=== PATIENT | female | born 1945 | race Caucasian/White ===

== ENCOUNTER 2023-02-27 00:08 | Emergency (ER) | payer OTHER, SELFPAY ==
--- NOTE | ~2023-02-27 | XR_ITS ---
EXAMINATION: XR ABDOMEN KUB CLINICAL INDICATION: Question constipation COMPARISON: 01/26/2017 TECHNIQUE: AP view of the abdomen. FINDINGS: The bowel gas pattern is normal with no evidence of ileus or obstruction. Stool present throughout the nondistended colon. No unusual soft tissue calcifications are noted. The bones are unremarkable. XR/XR KUB IMPRESSION: Mild constipation.
--- OUTSIDE RECORDS SUMMARY | 2023-02-27 00:26 | XMS_ITS | Continuity of Care Document ---
Author Name Unknown Organization [facility] Address [address] [place] [id number]- Care Team Providers Care Still Cleaner Name Role Phone Carlos Cancino MD Primary Care Physician [place] [facility] [place] 02[place] - 09/22/20 [facility] [address] [place] [id number] Attending Physician: Daron Rose MD Admitting Physician: Daron Rose MD Referring Physician: Carlos Cancino MD Allergies, Adverse Reactions, Alerts Substance Reaction Severity Status NKA Active Medications (Vitamin D3) Cholecalciferol 400 LONG TERM units/mL oral syringe 1 mL = 400 International_Units, By Mouth, Daily, 0 Refills, Maintenance, 03/14/18 19:12:10 EDT Start Date: 03/14/18 Status: Ordered Aspirin Tablet 81 mg, By Mouth, Daily, Refills 0, Maintenance, 03/14/18 19:10:49 EDT Start Date: 03/14/18 Status: Ordered atorvastatin 20 mg oral tablet 1 tablet = 20 mg, By Mouth, Daily, # 30 tablet, 0 Refills, Maintenance, Tablet Start Date: 03/14/18 Status: Ordered carvedilol 25 mg oral tablet 25 mg, 1, tablet, By Mouth, 2 times a day, # 180 tablet, Refills 0, Maintenance, 03/14/18 19:11:06 EDT Start Date: 03/14/18 Status: Ordered Hydrochlorothiazide By Mouth, Daily, 0 Refills, Maintenance, 03/14/18 19:11:57 EDT Start Date: 03/14/18 Status: Ordered Losartan By Mouth, Daily, 0 Refills, Maintenance, 03/14/18 19:14:00 EDT Start Date: 03/14/18 Status: Ordered Prilosec OTC = 20 mg, By Mouth, Daily, 0 Refills, Maintenance, 03/14/18 19:13:38 EDT Start Date: 03/14/18 Status: Ordered Spironolactone By Mouth, 0 Refills, Maintenance, 03/14/18 19:13:05 EDT Start Date: 03/14/18 Status: Ordered
--- OUTSIDE RECORDS SUMMARY | 2023-02-27 00:26 | XMS_ITS | Continuity of Care Document ---
Author Name Unknown Organization [facility] Address [address] [place] [id number]- Care Team Providers Care Customer Relations Assistant Name Role Phone Barak HIGGINS, Carlos Munson Primary Care Physician [place] [facility] [place]20 [facility] [address] [place] [id number] [facility] Attending Physician: Daron Rose MD Admitting Physician: Daron Rose MD Referring Physician: Slade CHEMICAL LABORATORY SCIENTIST, Ludy Allergies, Adverse Reactions, Alerts Substance Reaction Severity Status NKA Active Medications (Vitamin D3) Cholecalciferol 400 FCI units/mL oral syringe 1 mL = 400 [...]
--- OUTSIDE RECORDS SUMMARY | 2023-02-27 00:26 | XMS_ITS | Continuity of Care Document ---
Author Name Unknown Organization [facility] Address [address] [place] [address]- Care Team Providers Care Clinical Application Consultant Name Role Phone Barak HIGGINS, Carlos Munson Primary Care Physician [phone] Encounter [facility] [place] Date(s): 05/03/21 - 05/03/[address] [address]- Encounter Diagnosis Abdominal pain(Final) - 05/03/21 Discharge Disposition: A-D/C Home Attending Physician: Jalen Cheek MD Admitting Physician: Jalen Cheek MD Referring Physician: Not on Staff, Referring MD Allergies, Adverse Reactions, Alerts Substance Reaction Severity Status NKA Active Medications (Vitamin D3) Cholecalciferol 400 FDC units/mL oral syringe 1 mL = 400 [...] 19:13:05 EDT Start Date: 03/14/18 Status: Ordered Vital Signs Most recent to oldest [Reference Range]: 1 2 3 Oxygen Saturation [94-100 %] 99 % (05/03/21 3:01 PM) 98 % (05/03/21 9:53 AM) Pulse Rate [55-90 bpm] 70 bpm (05/03/21 3:27 PM) 62 bpm (05/03/21 3:01 PM) 64 bpm (05/03/21 9:53 AM) Blood Pressure [90-138/55-84 mm Hg] 162/68mm Hg *H* (05/03/21 3:27 PM) 121/67mm Hg (05/03/21 3:01 PM) 125/48mm Hg (05/03/21 9:53 AM) Respiratory Rate [16-30 br/min] 18 br/min (05/03/21 3:01 PM) 18 br/min (05/03/21 9:53 AM) Temperature [96.8-100.4 DegF] 99.2 DegF (05/03/21 3:01 PM) 99.8 DegF (05/03/21 9:53 AM) Mode of Delivery (Oxygen) Room air (05/03/21 3:01 PM) Room air (05/03/21 9:53 AM) Blood pressure sites Arm, left (05/03/21 3:01 PM) Arm, left (05/03/21 9:53 AM) Temperature Route Oral (05/03/21 3:01 PM) Oral (05/03/21 9:53 AM)
--- OUTSIDE RECORDS SUMMARY | 2023-02-27 00:27 | XMS_ITS | Continuity of Care Document ---
Author Name Unknown Organization [facility] Address [address] [place] [address]- Care Team Providers Care Improvement Engineer Name Role Phone Barak HIGGINS, Carlos Munson Primary Care Physician [place] [facility] [place] 09[place]22/20 [facility] [address] [place] [id number] Attending Physician: Patrick Buchanan Admitting Physician: Patrick Buchanan Referring Physician: Patrick Buchanan Referring Physician: Slade TERRY, Ludy Allergies, Adverse Reactions, Alerts Substance Reaction Severity Status NKA Active Medications (Vitamin D3) Cholecalciferol 400 HALFWAY units/mL oral syringe 1 mL = 400 [...]
--- OUTSIDE RECORDS SUMMARY | 2023-02-27 00:27 | XMS_ITS | Continuity of Care Document ---
Author Name Unknown Organization [facility] ter Address [address] [place] [id number]- Care Team Providers Care Critical Care Nurse Practitioner Name Role Phone Barak HIGGINS, Carlos Munson Primary Care Physician [place] [facility] [place] 11/[place]/[address] [address] [facility] Attending Physician: Lenin Cui MD Allergies, Adverse Reactions, Alerts Substance Reaction Severity Status NKA Active Medications (Vitamin D3) Cholecalciferol 400 CHCF units/mL oral syringe 1 mL = 400 [...]
[2023-02-27 00:33] VITALS: BMI 52.5
[2023-02-27 00:36] VITALS: BP 134/66; PULSE 63; RESP 20; TEMP 36.6; O2SAT 96
--- NOTE | 2023-02-27 02:00 | PC.NURSE ---
Pt. refusing labs at this time. Stating that she wants to go back to facility. Jus Godfrey MD aware and in to pt.'s bedside. Awaiting d/c
--- NOTE | 2023-02-27 03:15 | PC.NURSE ---
Trying to coordinate transportation for pt.'s discharge back to [facility]. Called [facility] and pt.'s emergency contact, niciarra Patterson. Left message with Yesenia and awaiting callback. Spoke to Venita at [facility]. Venita states that [facility] is locked until 6am and pt. cannot come back until after doors open at 6am. Venita states that at 8am, she will speak to her manager employee benefits Monserrat about potentially coordinating a ride for pt. if we don't hear back from her niece by then.
--- NOTE | 2023-02-27 06:33 | MHC.EDTECH ---
call out to wendy for transport at 0619 back to assisted living facility, spoke to noemy
== END 2023-02-27 07:00 | disposition home or self-care (01) ==
PROVIDERS: Emergency Provider Emergency Medicine
DX: R10.9 Unspecified abdominal pain (principal)
CPT/HCPCS: 74018; 99283; 99284

== ENCOUNTER 2023-09-24 21:18 | Inpatient (IN) | payer MEDICARE, MEDICAID, SELFPAY ==
--- NOTE | ~2023-09-24 | XR_ITS ---
EXAMINATION: Chest, right ankle and AP pelvis with right hip. CLINICAL INDICATIONS: Fall. TECHNIQUE: Chest one view. Right ankle 2 views. AP pelvis and right hip 3 views. FINDINGS: Chest: The lungs are well-expanded and clear. Heart size and pulmonary vascularity is normal. There is elevated right hemidiaphragm. Bone windows reveal no gross bony abnormality. The soft tissues are normal. Right ankle: The ankle mortise appears normal. There is talipes equinovalgus deformity of the foot with nonvisualization of subtalar joint. There is no visible acute fracture, dislocation or subluxation. There is diffuse osteopenia. The soft tissues are normal. There is moderate size calcaneal heel enthesophyte. There are healing fractures proximal third, fourth and fifth metatarsals. Soft tissues are normal. AP pelvis: There is moderate loss of right hip joint space with periarticular spurring and subchondral cystic changes consistent with advanced DJD. The left hip joint space is maintained normal. SI joints are normal. The soft tissues are normal. XR/XR chest 1V IMPRESSION: 1. Unremarkable chest exam. 2. Unremarkable right ankle exam. 3. Healing fractures proximal third, fourth and fifth metatarsals. No acute fractures seen. There is moderate size calcaneal heel enthesophyte. Talipes equinus valgus deformity right foot. No acute fracture or dislocation seen. 4. Advanced DJD right hip joint. No acute fracture or dislocation seen. There is diffuse osteopenia.
--- NOTE | ~2023-09-24 | XR_ITS ---
EXAMINATION: Chest, right ankle and AP pelvis with right hip. CLINICAL INDICATIONS: Fall. TECHNIQUE: Chest one view. Right ankle 2 views. AP pelvis and right hip 3 views. FINDINGS: Chest: The lungs are well-expanded and clear. Heart size and pulmonary vascularity is normal. There is elevated right hemidiaphragm. Bone windows reveal no gross bony abnormality. The soft tissues are normal. Right ankle: The ankle mortise appears normal. There is talipes equinovalgus deformity of the foot with nonvisualization of subtalar joint. There is no visible acute fracture, dislocation or subluxation. There is diffuse osteopenia. The soft tissues are normal. There is moderate size calcaneal heel enthesophyte. There are healing fractures proximal third, fourth and fifth metatarsals. Soft tissues are normal. AP pelvis: There is moderate loss of right hip joint space with periarticular spurring and subchondral cystic changes consistent with advanced DJD. The left hip joint space is maintained normal. SI joints are normal. The soft tissues are normal. XR/XR ankle RT min 3V IMPRESSION: 1. Unremarkable chest exam. 2. Unremarkable right ankle exam. 3. Healing fractures proximal third, fourth and fifth metatarsals. No acute fractures seen. There is moderate size calcaneal heel enthesophyte. Talipes equinus valgus deformity right foot. No acute fracture or dislocation seen. 4. Advanced DJD right hip joint. No acute fracture or dislocation seen. There is diffuse osteopenia.
--- NOTE | ~2023-09-24 | CT_ITS ---
EXAMINATION: CT ANGIOGRAM HEAD CT ANGIOGRAM NECK CT CERVICAL SPINE CLINICAL INFORMATION: Reason for Exam dizziness, slurred speech, AMS COMPARISON: CT head 04/08/2017 TECHNIQUE: Test bolus sequences followed by intravenous administration 85 mL of Omnipaque 350. Helical imaging was performed in the axial plane from the aortic arch to the skull vertex. Delayed postcontrast imaging of the head was also performed. The data was processed at the nuclear medicine pet ct technologist's workstation for generation of MIP sequences. Angled MIPs and volume rendered reformatted images were also generated at an offline 3D workstation. Stenoses are assessed in accordance with Curry et al. Quantification of Carotid Stenosis on CT Angiography. AJR 2006. 27(1):13-19. CT acquisitions of the cervical spine are also obtained. This CT examination was performed using dose optimization techniques as appropriate, variously including the following: *Automated exposure control *Adjustment of mA and/or kV according to patient size (this includes techniques or standardized protocols for targeted exams where dose is matched to indication/reason for exam; i.e. extremities or head) *Use of iterative reconstruction technique DLP: 1413.07 mGy-cm (accession [id number]), 960.04 mGy-cm (accession [id number]), 960.04 mGy-cm (accession [id number]) FINDINGS: CT HEAD: Mild to moderate generalized parenchymal volume loss with a predilection for the bilateral parietal and left greater than right temporal lobe secondary correlated clinically for Alzheimer's disease. Patchy periventricular and deep white matter hypoattenuation is consistent with moderate small vessel ischemic changes. No territorial loss of huggins-white differentiation. No acute intracranial hemorrhage or extra-axial fluid collection. New 1.2 x 0.8 cm enhancing hyperdense extra-axial lesion along the left greater wing of the sphenoid bone causing slight mass effect along the inferolateral left frontal and anterior left temporal lobes, which may reflect a meningioma, however additional etiologies, such as dural based metastasis are not excluded. The orbits are grossly normal. Paranasal sinuses are well aerated. Presumably cerumen within the right PAC with thickening of the right tympanic membrane. Trace bilateral mastoid effusions. Osseous structures are intact. CTA HEAD: Venous contamination limits assessment of the distal intracranial arterial vasculature. No proximal large vessel occlusion. Calcific plaque along the bilateral carotid siphons without associated stenosis. No significant stenosis within the anterior or posterior circulation. Mild stenoses along the right posterior communicating artery. No high flow vascular malformations. There is an anteriorly projecting saccular aneurysm along the anterior communicating artery complex measuring 2.4 mm from base to apex. Timing of the contrast bolus allows assessment of the major dural venous sinuses, which all opacify normally CTA NECK: Classic 3 vessel branching pattern of the aortic arch. Origins of the great vessels are widely patent. The common carotid arteries are widely patent. Trace atherosclerosis of the carotid bifurcations without stenosis. The internal carotid arteries are widely patent. The left vertebral artery is dominant. The vertebral artery ostia are widely patent. Spondylitic changes mildly narrows the right V2 vertebral artery at the level of C3-C4. Otherwise, the Vertebral arteries are widely patent throughout their extracranial cervical course. CT NECK: Coronary artery vascular calcifications. Several dental caries can be correlated with dental examination. Periapical lucency associated with the right mandibular first premolar tooth with erosion of the overlying buccal cortex. 1.1 cm heterogeneously enhancing nodule along the posterior left thyroid lobe, presumably exophytic thyroid nodule, below size criteria for imaging follow-up. Ossified loose bodies within the right superior subscapularis recess of the right glenohumeral joint. CT Cervical Spine: Normal sagittal alignment is preserved. No acute fracture or traumatic subluxation. Cervical spondylitic disease, notably with soft tissue within the ventral spinal canal spanning from C3-C4 through C4-C5, presumably reflecting extruded disc material, which contributes to apparent severe spinal canal stenosis and mass effect along the cord. Additional apparent multilevel mild to moderate spinal canal stenosis and varying degrees of neural foraminal narrowing. CT/CT head/brain wo IV con IMPRESSION: 1. No acute intracranial findings. 2. New 1.2 x 0.8 cm enhancing hyperdense extra-axial lesion along the left greater wing of the sphenoid bone causing slight regional mass effect, which may reflect a meningioma, however additional etiologies, such as dural based metastasis are not excluded. Recommend further evaluation with contrast-enhanced MRI. 3. No acute arterial occlusion or hemodynamically significant stenosis within the head or neck. 4. 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 5. No acute fracture or traumatic subluxatoin in the cervical spine. 6. Cervical spondylosis. Ventral epidural soft tissue spanning C3-C4 through C4-C5, presumably extruded disc material, contributing to apparent severe spinal canal stenosis and mass effect along the cord. Additional apparent multilevel mild to moderate spinal canal stenosis and varying degrees of neural foraminal narrowing. Consider further evaluation with cervical spine MRI there is referrable myelopathy/radiculopathy. Findings were discussed with Dr. Sutton at 11:30 PM on 09/24/2023 and it was ascertained that the content and urgency of the report was understood at the time of direct communication.
--- NOTE | ~2023-09-24 | CT_ITS ---
EXAMINATION: CT ANGIOGRAM HEAD CT ANGIOGRAM NECK CT CERVICAL SPINE CLINICAL INFORMATION: Reason for Exam dizziness, slurred speech, AMS COMPARISON: CT head 04/08/2017 TECHNIQUE: Test bolus sequences followed by intravenous administration 85 mL of Omnipaque 350. Helical imaging was performed in the axial plane from the aortic arch to the skull vertex. Delayed postcontrast imaging of the head was also performed. The data was processed at the operating room technologist's workstation for generation of MIP sequences. Angled MIPs and volume rendered reformatted images were also generated at an offline 3D workstation. Stenoses are assessed in accordance with Curry et al. Quantification of Carotid Stenosis on CT Angiography. AJR 2006. 27(1):13-19. CT acquisitions of the cervical spine are also obtained. This CT examination was performed using dose optimization techniques as appropriate, variously including the following: *Automated exposure control *Adjustment of mA and/or kV according to patient size (this includes techniques or standardized protocols for targeted exams where dose is matched to indication/reason for exam; i.e. extremities or head) *Use of iterative reconstruction technique DLP: 1413.07 mGy-cm (accession [id number]), 960.04 mGy-cm (accession [id number]), 960.04 mGy-cm (accession [id number]) FINDINGS: CT HEAD: Mild to moderate generalized parenchymal volume loss with a predilection for the bilateral parietal and left greater than right temporal lobe secondary correlated clinically for Alzheimer's disease. Patchy periventricular and deep white matter hypoattenuation is consistent with moderate small vessel ischemic changes. No territorial loss of huggins-white differentiation. No acute intracranial hemorrhage or extra-axial fluid collection. New 1.2 x 0.8 cm enhancing hyperdense extra-axial lesion along the left greater wing of the sphenoid bone causing slight mass effect along the inferolateral left frontal and anterior left temporal lobes, which may reflect a meningioma, however additional etiologies, such as dural based metastasis are not excluded. The orbits are grossly normal. Paranasal sinuses are well aerated. Presumably cerumen within the right PAC with thickening of the right tympanic membrane. Trace bilateral mastoid effusions. Osseous structures are intact. CTA HEAD: Venous contamination limits assessment of the distal intracranial arterial vasculature. No proximal large vessel occlusion. Calcific plaque along the bilateral carotid siphons without associated stenosis. No significant stenosis within the anterior or posterior circulation. Mild stenoses along the right posterior communicating artery. No high flow vascular malformations. There is an anteriorly projecting saccular aneurysm along the anterior communicating artery complex measuring 2.4 mm from base to apex. Timing of the contrast bolus allows assessment of the major dural venous sinuses, which all opacify normally CTA NECK: Classic 3 vessel branching pattern of the aortic arch. Origins of the great vessels are widely patent. The common carotid arteries are widely patent. Trace atherosclerosis of the carotid bifurcations without stenosis. The internal carotid arteries are widely patent. The left vertebral artery is dominant. The vertebral artery ostia are widely patent. Spondylitic changes mildly narrows the right V2 vertebral artery at the level of C3-C4. Otherwise, the Vertebral arteries are widely patent throughout their extracranial cervical course. CT NECK: Coronary artery vascular calcifications. Several dental caries can be correlated with dental examination. Periapical lucency associated with the right mandibular first premolar tooth with erosion of the overlying buccal cortex. 1.1 cm heterogeneously enhancing nodule along the posterior left thyroid lobe, presumably exophytic thyroid nodule, below size criteria for imaging follow-up. Ossified loose bodies within the right superior subscapularis recess of the right glenohumeral joint. CT Cervical Spine: Normal sagittal alignment is preserved. No acute fracture or traumatic subluxation. Cervical spondylitic disease, notably with soft tissue within the ventral spinal canal spanning from C3-C4 through C4-C5, presumably reflecting extruded disc material, which contributes to apparent severe spinal canal stenosis and mass effect along the cord. Additional apparent multilevel mild to moderate spinal canal stenosis and varying degrees of neural foraminal narrowing. CT/CT angio head neck IMPRESSION: 1. No acute intracranial findings. 2. New 1.2 x 0.8 cm enhancing hyperdense extra-axial lesion along the left greater wing of the sphenoid bone causing slight regional mass effect, which may reflect a meningioma, however additional etiologies, such as dural based metastasis are not excluded. Recommend further evaluation with contrast-enhanced MRI. 3. No acute arterial occlusion or hemodynamically significant stenosis within the head or neck. 4. 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 5. No acute fracture or traumatic subluxatoin in the cervical spine. 6. Cervical spondylosis. Ventral epidural soft tissue spanning C3-C4 through C4-C5, presumably extruded disc material, contributing to apparent severe spinal canal stenosis and mass effect along the cord. Additional apparent multilevel mild to moderate spinal canal stenosis and varying degrees of neural foraminal narrowing. Consider further evaluation with cervical spine MRI there is referrable myelopathy/radiculopathy. Findings were discussed with Dr. Sutton at 11:30 PM on 09/24/2023 and it was ascertained that the content and urgency of the report was understood at the time of direct communication.
--- NOTE | ~2023-09-24 | CT_ITS ---
EXAMINATION: CT ANGIOGRAM HEAD CT ANGIOGRAM NECK CT CERVICAL SPINE CLINICAL INFORMATION: Reason for Exam dizziness, slurred speech, AMS COMPARISON: CT head 04/08/2017 TECHNIQUE: Test bolus sequences followed by intravenous administration 85 mL of Omnipaque 350. Helical imaging was performed in the axial plane from the aortic arch to the skull vertex. Delayed postcontrast imaging of the head was also performed. The data was processed at the cath lab technologist's workstation for generation of MIP sequences. Angled MIPs and volume rendered reformatted images were also generated at an offline 3D workstation. Stenoses are assessed in accordance with Curry et al. Quantification of Carotid Stenosis on CT Angiography. AJR 2006. 27(1):13-19. CT acquisitions of the cervical spine are also obtained. This CT examination was performed using dose optimization techniques as appropriate, variously including the following: *Automated exposure control *Adjustment of mA and/or kV according to patient size (this includes techniques or standardized protocols for targeted exams where dose is matched to indication/reason for exam; i.e. extremities or head) *Use of iterative reconstruction technique DLP: 1413.07 mGy-cm (accession [id number]), 960.04 mGy-cm (accession [id number]), 960.04 mGy-cm (accession [id number]) FINDINGS: CT HEAD: Mild to moderate generalized parenchymal volume loss with a predilection for the bilateral parietal and left greater than right temporal lobe secondary correlated clinically for Alzheimer's disease. Patchy periventricular and deep white matter hypoattenuation is consistent with moderate small vessel ischemic changes. No territorial loss of huggins-white differentiation. No acute intracranial hemorrhage or extra-axial fluid collection. New 1.2 x 0.8 cm enhancing hyperdense extra-axial lesion along the left greater wing of the sphenoid bone causing slight mass effect along the inferolateral left frontal and anterior left temporal lobes, which may reflect a meningioma, however additional etiologies, such as dural based metastasis are not excluded. The orbits are grossly normal. Paranasal sinuses are well aerated. Presumably cerumen within the right PAC with thickening of the right tympanic membrane. Trace bilateral mastoid effusions. Osseous structures are intact. CTA HEAD: Venous contamination limits assessment of the distal intracranial arterial vasculature. No proximal large vessel occlusion. Calcific plaque along the bilateral carotid siphons without associated stenosis. No significant stenosis within the anterior or posterior circulation. Mild stenoses along the right posterior communicating artery. No high flow vascular malformations. There is an anteriorly projecting saccular aneurysm along the anterior communicating artery complex measuring 2.4 mm from base to apex. Timing of the contrast bolus allows assessment of the major dural venous sinuses, which all opacify normally CTA NECK: Classic 3 vessel branching pattern of the aortic arch. Origins of the great vessels are widely patent. The common carotid arteries are widely patent. Trace atherosclerosis of the carotid bifurcations without stenosis. The internal carotid arteries are widely patent. The left vertebral artery is dominant. The vertebral artery ostia are widely patent. Spondylitic changes mildly narrows the right V2 vertebral artery at the level of C3-C4. Otherwise, the Vertebral arteries are widely patent throughout their extracranial cervical course. CT NECK: Coronary artery vascular calcifications. Several dental caries can be correlated with dental examination. Periapical lucency associated with the right mandibular first premolar tooth with erosion of the overlying buccal cortex. 1.1 cm heterogeneously enhancing nodule along the posterior left thyroid lobe, presumably exophytic thyroid nodule, below size criteria for imaging follow-up. Ossified loose bodies within the right superior subscapularis recess of the right glenohumeral joint. CT Cervical Spine: Normal sagittal alignment is preserved. No acute fracture or traumatic subluxation. Cervical spondylitic disease, notably with soft tissue within the ventral spinal canal spanning from C3-C4 through C4-C5, presumably reflecting extruded disc material, which contributes to apparent severe spinal canal stenosis and mass effect along the cord. Additional apparent multilevel mild to moderate spinal canal stenosis and varying degrees of neural foraminal narrowing. CT/CT cervical spine wo IV con IMPRESSION: 1. No acute intracranial findings. 2. New 1.2 x 0.8 cm enhancing hyperdense extra-axial lesion along the left greater wing of the sphenoid bone causing slight regional mass effect, which may reflect a meningioma, however additional etiologies, such as dural based metastasis are not excluded. Recommend further evaluation with contrast-enhanced MRI. 3. No acute arterial occlusion or hemodynamically significant stenosis within the head or neck. 4. 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 5. No acute fracture or traumatic subluxatoin in the cervical spine. 6. Cervical spondylosis. Ventral epidural soft tissue spanning C3-C4 through C4-C5, presumably extruded disc material, contributing to apparent severe spinal canal stenosis and mass effect along the cord. Additional apparent multilevel mild to moderate spinal canal stenosis and varying degrees of neural foraminal narrowing. Consider further evaluation with cervical spine MRI there is referrable myelopathy/radiculopathy. Findings were discussed with Dr. Sutton at 11:30 PM on 09/24/2023 and it was ascertained that the content and urgency of the report was understood at the time of direct communication.
--- NOTE | ~2023-09-24 | XR_ITS ---
EXAMINATION: Chest, right ankle and AP pelvis with right hip. CLINICAL INDICATIONS: Fall. TECHNIQUE: Chest one view. Right ankle 2 views. AP pelvis and right hip 3 views. FINDINGS: Chest: The lungs are well-expanded and clear. Heart size and pulmonary vascularity is normal. There is elevated right hemidiaphragm. Bone windows reveal no gross bony abnormality. The soft tissues are normal. Right ankle: The ankle mortise appears normal. There is talipes equinovalgus deformity of the foot with nonvisualization of subtalar joint. There is no visible acute fracture, dislocation or subluxation. There is diffuse osteopenia. The soft tissues are normal. There is moderate size calcaneal heel enthesophyte. There are healing fractures proximal third, fourth and fifth metatarsals. Soft tissues are normal. AP pelvis: There is moderate loss of right hip joint space with periarticular spurring and subchondral cystic changes consistent with advanced DJD. The left hip joint space is maintained normal. SI joints are normal. The soft tissues are normal. XR/XR hip RT w [id number] IMPRESSION: 1. Unremarkable chest exam. 2. Unremarkable right ankle exam. 3. Healing fractures proximal third, fourth and fifth metatarsals. No acute fractures seen. There is moderate size calcaneal heel enthesophyte. Talipes equinus valgus deformity right foot. No acute fracture or dislocation seen. 4. Advanced DJD right hip joint. No acute fracture or dislocation seen. There is diffuse osteopenia.
--- NOTE | 2023-09-24 21:24 | ECG_ITS ---
Test Reason : stroke Blood Pressure : / mmHG Vent. Rate : 073 BPM Atrial Rate : 073 BPM P-R Int : 134 ms QRS Dur : 116 ms QT Int : 454 ms P-R-T Axes : 026 -12 130 degrees QTc Int : 500 ms Normal sinus rhythm Left ventricular hypertrophy with QRS widening and repolarization abnormality ( Mayfield product ) Inferior infarct , age undetermined Abnormal ECG When compared with ECG of 08-APR-2017 16:20, Inferior infarct is now Present ST now depressed in Lateral leads T wave inversion now evident in Lateral leads QT has lengthened Referred By: Tanya Sutton Electronically Signed By:ANNELISE WHIPPLE MD
[2023-09-24 21:26] VITALS: BP 100/58; BP 151/105; PULSE 62; PULSE 78; RESP 29; TEMP 36.7; O2SAT 97; O2SAT 98; BMI 31.2
--- NOTE | 2023-09-24 21:30 | PC.NURSE ---
Patient YONAS from [facility] assisted living with slurred speech, right sided facial droop, and confusion. Per EMS no staff at [facility] could tell EMS patient's last seen normal time. Patient is alert and oriented x2, [place], poor historian, and cannot provide information about when symptoms started. Per EMS patient did not fall, she was lowered at BIOLOGICAL LAB TECHNICIAN to the floor. Patient reports she fell and reports severe pain in right hip with nausea. There is swelling/hematoma noted to R thigh. EKG completed, labs drawn per MD order. 20 G IV line placed in L forearm. Purewick applied. Patient taken to CT scan. Patient was not able to stay still for the scan due to pain. Patient medicated with Fentanyl 25 mcg for [address] management[address] scan completed and X-Ray completed, patient returned to ED room. Patient placed in nurse monitoring. Dr. Sutton at bedside and aware of low BP 88-91/40-46, P 70-75, O2 Sat 95-98% RA. Fluids and IV antibiotic administered per DEC.
--- NOTE | 2023-09-24 21:35 | ED.NEUROSD ---
HPI - Neuro Symptoms/Deficit General Chief Complaint: Stroke Stated Complaint: stroke alert, dizziness, poss fall, altered mental Source: patient and EMS Mode of arrival: EMS Limitations: altered mental status History of Present Illness HPI Narrative: 78 yo female with HTN, HLD, GERD, dementia, seizure disorder, cardiomyopathy from [facility] assisted living who was deemed off at 3pm by SSIS ARCHITECT - no staff could tell EMS when she was last seen normal and the patient waves us off and cannot tell us when this started just that she is going to throw up. She does not she fell but unable to state when or why. EMS found her with slurred speech, confused, swelling to R thigh and pain in R thigh. There is no paperwork on file so history is very limited. RN called [facility] staff that answered state they do not know her PMH. Onset (ago): unknown Timing confirmed by: caregiver Location: speech and altered History of same: No Severity: moderate Quality: weak Relieving factors: none Exacerbating factors: none Context: other (unknown patient does state that she fell) On Anticoagulants: No Associated symptoms: other (leg pain, nausea, dizziness) Treatments Prior to Arrival: none Related Data Allergies Allergy/AdvReac Type Severity Reaction Status Date / Time No Known Allergies Allergy Unverified 06/22/20 15:02 [No Known Allergies*] Review of Systems Review of Systems: ROS unable to be obtained due to patient will not answer questions she shrugs us off and says stop talking to me [facility] Past Medical History Medical History Diverticulitis Hypertension Cardiomyopathy Hyperlipidemia Seizure disorder Diverticulosis Osteoarthritis Alzheimer's dementia Supraventricular tachycardia Social History Social History Alcohol intake: never Patient Tobacco Use Status: Tobacco use Unknown Smoked in Last 30 Days: No Use of substances other than those prescribed or required for medical reasons: No Advance Directives: Yes Advance Directives on File: Yes Advance Directives Date on File: 02/27/23 Nutrition Risks: No Nutritional Risk Physical Exam Vital Signs: Vital Signs: Last Vital Signs Temp 98.1 F 09/24/23 23:10 Pulse 65 09/25/23 05:48 Resp 14 09/25/23 05:48 BP 106/52 L 09/25/23 05:48 Pulse Ox 96 09/25/23 05:48 O2 Del Method Room Air 09/25/23 05:48 BMI result Body Mass Index 31.2 Appearance: Alert. Oriented X [address] and time but very confused and then tells us to shut up. No acute distress. Eyes: Pupils equal, round and reactive to light. ENT: Pharynx normal. Atraumatic Neck: Normal inspection. Neck supple. CVS: Normal heart rate and rhythm. Pulses normal. Respiratory: No respiratory distress. Breath sounds diminished in bases Abdomen: Soft and nontender. Skin: Skin warm and dry. Normal skin color. Normal skin turgor. Extremities: No lower extremity edema. R thigh there is a soft swelling and very large hematoma and she has ttp, no warmth or erythema. R ankle there is deformity but no swelling unsure if this is old. - pulse intact Neuro: Oriented X 2. will not participate in exam seems to move all extremities, states she is dizzy and nauseated, she has slurred speech Course Course Course Narrative: confirmed ankle is old from staff did call and leave a message with Sameera Yesenia waiting for call back NIH is likely higher than expected as she will not participate but also RLE has suspected fracture 1135pm repeat call to kristine no call back I wrapped her thigh with kate wrap she is still refusing intervention - she states she doesn't want hospice at this time but then makes statements - just let me I explained that I suspect she is actively extravasating but she is still refusing intervention of active bleeding other than transfusion 1150pm Reevaluation(s) Reevaluation #1: elevated WBC count without known source at this time no prior labs will give dose of IV ceftriaxone for presumed infection 1109pm Reevaluation #2: patient is obese her IBW is 52kg which would be 1560 of fluid patient had CTA done prior to labs I am not sure why this was run as a stroke alert - she was out of window and LVO not suspected Reevaluation #3: patient is currently refusing surgery, central line - states only other person to call is Yesenia. I explained she is likely actively bleeding into her thigh and she is still refusing further intervention. She has MOLST which states DNR/DNI. Additional Reevaluation(s): sameera is on her way over at this time 1212am. 1250am - discussion with patient and niece Yesenia who is HCP - patient states again no interventions, no transfusions, no CT scan of leg, no other interventions. She doesn't want IR to fix the bleeding or surgery. she just wants to be made comfortable she does not care at this time if she dies. she is at assisted living and they cannot manage her there. she is aware she is likely going to bleed to from the leg or suffer some other organ damage from acute blood loss anemia. She has been consistent in refusing further intervention and states she is ready to go. IV morphine drip ordered. code status ordered as WIRE PHOTO OPERATOR NEWS. Niece who is HCP wants to proceed with the patient's wishes at this time. I have spent a lot of time in the room trying to get the patient to understand that she needs IR or surgery to fix the pain and bleeding but she does not want intervention. Medications Administered Generic Name Dose Route Start Last Admin Trade Name Freq PRN Reason Stop Dose Admin Morphine Sulfate 100 mg in 100 mls @ 0 mls/hr 09/25/23 01:00 09/25/23 02:16 Morphine Sulfate/Ns IVCONT 2 mg/hr .Q0M KORY 2 mls/hr Administration Protocol Per Protocol Sodium Chloride 1,000 mls @ 50 mls/hr 09/25/23 02:00 09/25/23 02:15 Ns IVCONT 50 mls/hr .Q20H KORY Administration Discontinued Medications Generic Name Dose Route Start Last Admin Trade Name Freq PRN Reason Stop Dose Admin Acetaminophen 650 mg 09/24/23 22:11 09/24/23 23:25 Acetaminophen 325 Mg Tablet PO 09/24/23 22:12 650 mg ONCE ONE Administration Fentanyl 25 mcg 09/24/23 22:34 09/24/23 23:00 Fentanyl Citrate/Pf 100 Mcg/2 Ml Vial IVPUSH 09/24/23 22:35 25 mcg ONCE ONE Administration Protocol Fentanyl 25 mcg 09/24/23 23:32 09/24/23 23:50 Fentanyl Citrate/Pf 100 Mcg/2 Ml Vial IVPUSH 09/24/23 23:33 25 mcg ONCE ONE Administration Protocol Fentanyl 50 mcg 09/25/23 00:50 09/25/23 01:00 Fentanyl Citrate/Pf 100 Mcg/2 Ml Vial IVPUSH 12/21/23 00:51 50 mcg ONCE ONE Administration Protocol Ceftriaxone Sodium 1 gm/ 50 mls @ 100 mls/hr 09/24/23 23:09 09/25/23 01:00 Sodium Chloride IV 09/24/23 23:38 Infused ONCE ONE Infusion Sodium Chloride 1,572 mls @ 1,572 mls/hr 09/24/23 23:22 09/25/23 00:26 Ns IV 09/25/23 00:21 Infused .Q1H STA Infusion Iohexol 70 ml 09/24/23 22:41 09/24/23 22:42 Iohexol 350 Mg/Ml 100 Ml Infus..Btl IV 09/24/23 22:42 70 ml ONCE ONE Administration Ondansetron HCl 4 mg 09/24/23 21:24 09/24/23 23:24 Ondansetron Hcl 4 Mg/2 Ml Vial IVPUSH 09/24/23 21:25 4 mg ONCE ONE Administration Oxycodone HCl 5 mg 09/24/23 22:11 09/24/23 23:30 Oxycodone Hcl Immed Release 5 Mg Tablet PO 09/24/23 22:12 5 mg ONCE ONE Administration Medical Decision Making Medical Decision Making MDM Narrative: 78 yo female with HTN, HLD, GERD, dementia, seizure disorder, cardiomyopathy from [facility] assisted living with unknown onset of slurred speech, dizziness, vomiting - staff could not tell EMS when she was last seen normal but they found her at 3pm like this. The patient cannot provide an accurate history. She comes with no paperwork and staff on shift right now unable to provide history. At this time given symptoms and appearance of injury I have ordered labs, UA, CXR, CTA angio head and neck. She would not be a candidate for TNK given onset presumed before 3pm > 6 hours ago. She likely has hip or femur fracture with large hematoma concerning for active bleeding which would also not preclude her from TNK. Clinically the ankle appears to be an old deformity. She is not able to follow many commands or answer questions I cannot consent her - I have no next of kin that is answering the phone if I was to transfuse her or do a procedure. She lacks the ability to make decisions at this time and is not able to hold a conversation with me. Differential Diagnosis Differential Diagnoses: The differential diagnosis associated with the presentation includes stroke, encephalopathy, ICH, fracture Admission/Observation Consideration of admission/observation: Escalation of care including admission/observation considered admit as WIRE PHOTO OPERATOR NEWS - at assisted living facility cannot manage her needs Consult Healthcare Provider Management of the patient was discussed with: Hospitalist (will admit) Lab Data MDM Lab Attestation statement: I reviewed the patient's lab results. 09/25/23 00:00 09/24/23 23:23 Labs: Lab Results 09/24/23 09/24/23 09/24/23 Range/Units 21:25 22:02 23:23 WBC 17.4 H (4.8-10.8) X10*3/uL RBC 3.30 L (4.20-5.50) X10*6/uL Hgb 9.9 L (12.0-16.0) g/dl Hct 30.9 L (37.0-47.0) % MCV 93.6 (80.0-98.0) fL MCH 30.0 (27.0-33.0) pg MCHC 32.0 (31.0-35.0) g/dl RDW 13.9 (11.0-16.0) % Plt Count 286 (160-400) X10*3/uL MPV 10.5 (9.4-12.3) fL Immature Gran % (Auto) 0.5 H (0.0-0.4) % Neut % (Auto) 91.4 H (45-73) % Lymph % (Auto) 2.4 L (20-40) % Logan % (Auto) 5.5 (2-11) % Eos % (Auto) 0.0 (0-4) % Baso % (Auto) 0.2 (0-2) % Lymph # (Auto) 0.4 L (1.2-4.9) X10*3/uL Logan # (Auto) 1.0 (0.1-1.2) X10*3/uL Eos # (Auto) 0.0 (0.0-0.4) X10*3/uL Baso # (Auto) 0.0 (0.0-0.2) X10*3/uL Abs Immat Gran (auto) 0.08 H (0.00-0.03) X10*3/uL Absolute Neuts (auto) 15.9 H (2.0-8.3) x10*3/uL Absolute Nucleated RBC 0.000 (0.0-0.012) X10*3/uL Nucleated RBC % (auto) 0.0 (0.0-0.2) /100WBC Smear Tech's Comments VERIFIED PT 15.0 H (11.1-13.3) SEC INR 1.2 H (0.9-1.1) VBG pH (7.32-7.43) VBG pCO2 mmHg VBG pO2 mmHg VBG HCO3 (22-26) mmol/L VBG O2 Saturation % VBG Base Excess mmol/L Sodium 139 (135-145) mmol/L Potassium 4.5 (3.3-5.1) mmol/L Chloride 106 (96-108) mmol/L Carbon Dioxide 23 (22-29) mmol/L Anion Gap 15 (12-20) BUN 25 H (9-16) mg/dL Creatinine 1.36 (0.5-1.4) mg/dL Estim Creat Clear Calc 33.0 Estimated GFR 37 POC Glucose 221 H (60-115) mg/dL Random Glucose 166 H (60-115) mg/dL Lactic Acid 1.8 (0.5-2.0) mmol/L Calcium 8.3 L (8.4-10.2) mg/dL Magnesium 2.1 (1.6-2.6) mg/dL Total Bilirubin 0.7 (0.0-1.0) mg/dL Direct Bilirubin 0.3 (0.0-0.5) mg/dL AST 12 (5-31) U/L ALT 8 (0-31) U/L Alkaline Phosphatase 74 (39-117) U/L Ammonia 21 (13-55) umol/L Total Creatine Kinase 42 (26-140) U/L Troponin I High Sens 17.4 H (<3.5-17.0) ng/L B-Natriuretic Peptide 115 H (<100) pg/mL Total Protein 5.8 L (6.5-8.0) g/dL Albumin 3.2 L (3.5-5.0) g/dL Lipase 10 (8-78) U/L Influenza Type A (PCR) NEGATIVE (Negative) Influenza Type B (PCR) NEGATIVE (Negative) RSV RNA Qual (PCR) NEGATIVE (Negative) SARS-CoV-2 RNA (RT-PCR) POSITIVE A (Negative) Blood Type O Positive Antibody Screen NEGATIVE 09/24/23 09/25/23 Range/Units 23:36 00:00 WBC 15.7 H (4.8-10.8) X10*3/uL RBC 2.90 L (4.20-5.50) X10*6/uL Hgb 8.7 L (12.0-16.0) g/dl Hct 27.3 L (37.0-47.0) % MCV 94.1 (80.0-98.0) fL MCH 30.0 (27.0-33.0) pg MCHC 31.9 (31.0-35.0) g/dl RDW 13.8 (11.0-16.0) % Plt Count 267 (160-400) X10*3/uL MPV 10.5 (9.4-12.3) fL Immature Gran % (Auto) (0.0-0.4) % Neut % (Auto) (45-73) % Lymph % (Auto) (20-40) % Logan % (Auto) (2-11) % Eos % (Auto) (0-4) % Baso % (Auto) (0-2) % Lymph # (Auto) (1.2-4.9) X10*3/uL Logan # (Auto) (0.1-1.2) X10*3/uL Eos # (Auto) (0.0-0.4) X10*3/uL Baso # (Auto) (0.0-0.2) X10*3/uL Abs Immat Gran (auto) (0.00-0.03) X10*3/uL Absolute Neuts (auto) (2.0-8.3) x10*3/uL Absolute Nucleated RBC 0.000 (0.0-0.012) X10*3/uL Nucleated RBC % (auto) 0.0 (0.0-0.2) /100WBC Smear Tech's Comments PT (11.1-13.3) SEC INR (0.9-1.1) VBG pH 7.48 H (7.32-7.43) VBG pCO2 35 mmHg VBG pO2 46 mmHg VBG HCO3 26 (22-26) mmol/L VBG O2 Saturation 80.0 % VBG Base Excess 3.1 mmol/L Sodium (135-145) mmol/L Potassium (3.3-5.1) mmol/L Chloride (96-108) mmol/L Carbon Dioxide (22-29) mmol/L Anion Gap (12-20) BUN (9-16) mg/dL Creatinine (0.5-1.4) mg/dL Estim Creat Clear Calc Estimated GFR POC Glucose (60-115) mg/dL Random Glucose (60-115) mg/dL Lactic Acid (0.5-2.0) mmol/L Calcium (8.4-10.2) mg/dL Magnesium (1.6-2.6) mg/dL Total Bilirubin (0.0-1.0) mg/dL Direct Bilirubin (0.0-0.5) mg/dL AST (5-31) U/L ALT (0-31) U/L Alkaline Phosphatase (39-117) U/L Ammonia (13-55) umol/L Total Creatine Kinase (26-140) U/L Troponin I High Sens (<3.5-17.0) ng/L B-Natriuretic Peptide (<100) pg/mL Total Protein (6.5-8.0) g/dL Albumin (3.5-5.0) g/dL Lipase (8-78) U/L Influenza Type A (PCR) (Negative) Influenza Type B (PCR) (Negative) RSV RNA Qual (PCR) (Negative) SARS-CoV-2 RNA (RT-PCR) (Negative) Blood Type Antibody Screen Independent Interpretation I performed an independent interpretation of an: EKG, Plain X-Ray (no acute fractures) and CT Scan (no acute ICH) Interpretation: Rate: 73 Rhythm: NSR Placida: left, LVH Normal P waves. Normal SHERICE. Normal QRS complex. ST T wave : inverted t waves I and aVL, no TRAVIS, inverted V5-V6 qTC: normal prior studies: hx of LVH and strain in past slightly more pronounced today The study has been interpreted contemporaneously by me. . Radiology Impression Discussion of test interpretation with radiology: I discussed test interpretation with the radiologist and I have reviewed the radiologist's reading. Radiologist Impression: nothing acute 2.4 mm aneurysm ZOILA no ICH Independent Historian Clinical information obtained from an independent historian. History obtained from or confirmed by: EMS and Other (sameera Patterson who is HCP) External Record Review External record reviewed: Outpatient record NIH Stroke Scale Internal: Initial- Upon Arrival Level of Consciousness: Alert Level of Consciousness Questions: Answers one question correctly Level of Consciousness Commands: Performs both tasks correctly Best Gaze: Normal Visual: No visual loss Facial Palsy: Normal Motor Arm (Right): No drift Motor Arm (Left): No drift Motor Leg (Right): No effort against gravity (should not be counted suspect femur fracture) Motor Leg (Left): No drift Limb Ataxia: Absent Sensory: Normal Best Language: No aphasia Dysarthia: Mild to moderate dysarthria Extinction and Inattention: Visual, tactile, auditory, spatial, or personal inattention Score: 6 Critical Care Time Critical Care Time Critical Care Time: Yes Total Critical Care Time: 60 Attestation: IVF, repeat conversations and interventions, IV narcotics for pain control with some relief I attest to this time spent taking care of the patient Discharge Plan Discharge Clinical Impression: COVID-19, Dizziness Hematoma of thigh Qualifiers: Encounter type: initial encounter Laterality: right Qualified Code(s): S70.11XA - Contusion of right thigh, initial encounter Elevated WBC count Qualifiers: Leukocytosis type: unspecified Qualified Code(s): D72.829 - Elevated white blood cell count, unspecified Patient Disposition: Admitted As Inpatient
[2023-09-24 21:42] LABS: Glucose, Whole Blood 221 mg/dL (60-115)
[2023-09-24 22:25] LABS: Ammonia 21 umol/L (13-55); Basophils Percent Auto 0.2 % (0-2); Hematocrit 30.9 % (37.0-47.0); Hemoglobin 9.9 g/dl (12.0-16.0); Imm Gran Abs Auto 0.08 X10*3/uL (0.00-0.03); Imm Gran Pct Auto 0.5 % (0.0-0.4); Lymphocytes Absolute Auto 0.4 X10*3/uL (1.2-4.9); Lymphocytes Percent Auto 2.4 % (20-40); MANUAL DIFF FLAG SCAN; Mean Corpuscular Volume 93.6 fL (80.0-98.0); Mean Platelet Volume 10.5 fL (9.4-12.3); Monocytes Percent Auto 5.5 % (2-11); Neutrophils Absolute Auto 15.9 x10*3/uL (2.0-8.3); Neutrophils Percent Auto 91.4 % (45-73); Platelet Count 286 X10*3/uL (160-400); Red Cell Distribution Width 13.9 % (11.0-16.0); SCAN SMEAR FLAG 1; White Blood Count 17.4 X10*3/uL (4.8-10.8)
[2023-09-24 22:27] LABS: Lactic Acid 1.8 mmol/L (0.5-2.0)
[2023-09-24 22:28] LABS: INTERNATIONAL NORM RATIO 1.2 (0.9-1.1)
[2023-09-24 22:38] LABS: B Type Natriuretic Peptide 115 pg/mL (<100)
[2023-09-24] MEDS: iohexoL 350 MG/ML 100 ML INFUS..BTL 70 ML IV (22:42)
[2023-09-24 22:56] LABS: Influenza A PCR NEGATIVE (Negative); Influenza B PCR NEGATIVE (Negative); Resp Syncy Virus RNA Qual PCR NEGATIVE (Negative); SARS COV2 PCR INHOUSE POSITIVE (Negative)
[2023-09-24 23:00] VITALS: RESP 16
[2023-09-24] MEDS: fentaNYL citrate/PF 100 MCG/2 ML VIAL 25 MCG IVPUSH ×2 (23:00→23:50)
[2023-09-24 23:07] LABS: SLIDE REVIEW VERIFIED
[2023-09-24 23:10] VITALS: BP 91/37; PULSE 73; RESP 16; TEMP 36.7
[2023-09-24] MEDS: ondansetron HCL 4 MG/2 ML VIAL IVPUSH (23:24)
[2023-09-24] MEDS: Acetaminophen 325 MG TABLET 650 MG PO (23:25)
[2023-09-24] MEDS: oxyCODONE HCl Immed Release 5 MG TABLET PO (23:30)
[2023-09-24 23:41] LABS: Venous Blood Gas Refer to POC result
[2023-09-24 23:42] LABS: VBG Base Excess 3.1 mmol/L; VBG HCO3 26 mmol/L (22-26); VBG pCO2 35 mmHg; VBG pH 7.48 (7.32-7.43); VBG pO2 46 mmHg
[2023-09-24 23:50] VITALS: RESP 16
[2023-09-24 23:56] LABS: Alanine Aminotransferase 8 U/L (0-31); Albumin Level 3.2 g/dL (3.5-5.0); Alkaline Phosphatase 74 U/L (39-117); Anion Gap 15 (12-20); Aspartate Amino Transferase 12 U/L (5-31); Bilirubin Direct 0.3 mg/dL (0.0-0.5); Bilirubin Total 0.7 mg/dL (0.0-1.0); Blood Urea Nitrogen 25 mg/dL (9-16); Calcium 8.3 mg/dL (8.4-10.2); Carbon Dioxide 23 mmol/L (22-29); Chloride 106 mmol/L (96-108); Estimated Glomerular Filt Rate 37; Glucose Random 166 mg/dL (60-115); Lipase 10 U/L (8-78); Magnesium 2.1 mg/dL (1.6-2.6); Potassium 4.5 mmol/L (3.3-5.1); Sodium 139 mmol/L (135-145); Total Protein 5.8 g/dL (6.5-8.0)
[2023-09-25] VITALS (8 sets, daily range): BP systolic 86–148; BP diastolic 31–64; PULSE 65–80; RESP 14–17; TEMP 36.7–37.4; O2SAT 91–99
[2023-09-25 00:03] LABS: Troponin-I High Sensitivity 17.4 ng/L (<3.5-17.0)
[2023-09-25] MEDS: cefTRIAXone sodium 1 GM in 0.9 % Sodium Chloride 50 ML IV (00:23)
[2023-09-25 00:37] LABS: Hematocrit 27.3 % (37.0-47.0); Hemoglobin 8.7 g/dl (12.0-16.0); Mean Corpuscular HGB Conc 31.9 g/dl (31.0-35.0); Mean Corpuscular Volume 94.1 fL (80.0-98.0); Mean Platelet Volume 10.5 fL (9.4-12.3); Platelet Count 267 X10*3/uL (160-400); Red Cell Distribution Width 13.8 % (11.0-16.0); White Blood Count 15.7 X10*3/uL (4.8-10.8)
[2023-09-25] MEDS: fentaNYL citrate/PF 100 MCG/2 ML VIAL 50 MCG IVPUSH (01:00)
--- NOTE | 2023-09-25 01:18 | P.HPHOSP_ITS ---
History of Present Illness Date of Service: 09/25/23 Chief Complaint: Altered mentation This is a 78-year-old female with pertinent history of dementia, unspecified, gastroesophageal reflux disease, essential hypertension, mixed hyperlipidemia, cardiomyopathy, ?seizure disorder who was sent to the emergency department for evaluation of slurred speech and confusion. Last known normal time unclear. Patient states she fell and had swelling to the right thigh. She is complaining of right-sided thigh pain. History is limited as patient is a poor historian and no paperwork from [facility]. In the emergency department, imaging with enhancing hyperdense extra-axial lesion of the spinal bone causing regional mass effect. Also patient was found to have swollen and tender right thigh with likely underlying extravasation of blood. Patient's healthcare proxy ie niece was contacted and case was discussed. Patient stated that she does not want any intervention this time and would like to be on comfort measures only. Patient was initiated on IV morphine drip and admitted to hospital medicine team Review of Systems 2 Review of Systems: Yes Unobtainable due to mental condition [facility] Medical History Diverticulitis Hypertension Cardiomyopathy Hyperlipidemia Seizure disorder Diverticulosis Osteoarthritis Alzheimer's dementia Supraventricular tachycardia Pertinent family history: Unable to obtain and not significant Social History Alcohol intake: never Patient Tobacco Use Status: Tobacco use Unknown Smoked in Last 30 Days: No Use of substances other than those prescribed or required for medical reasons: No Advance Directives: Yes Advance Directives on File: Yes Advance Directives Date on File: 02/27/23 Meds Allergies Allergy/AdvReac Type Severity Reaction Status Date / Time No Known Allergies Allergy Unverified 06/22/20 15:02 [No Known Allergies*] Active Medications: Current Medications Morphine Sulfate (Morphine Sulfate/Ns) 100 mg in 100 mls @ 0 mls/hr IVCONT .Q0M [facility]; Protocol Physical Exam 2 Vital Signs and Narrative: Vital Signs: Last Vital Signs Temp 98.1 F 09/24/23 23:10 Pulse 68 09/25/23 00:12 Resp 16 09/25/23 01:00 BP 86/31 L 09/25/23 00:12 Pulse Ox 99 09/25/23 00:12 O2 Del Method Room Air 09/25/23 00:12 BMI result Body Mass Index 31.2 Elderly female lying in bed in no distress Neck supple, no JVD Regular rate and rhythm, S1-S2 heard Regular breath sounds bilaterally, no wheezing or crackles appreciated Abdomen soft nontender, no guarding, no rigidity Patient is awake, alert and oriented to self, place, disoriented to time and person ; slurred speech Extremity: Right thigh with swelling, likely large hematoma Results Labs 09/25/23 00:00 09/24/23 23:23 Labs: Laboratory Results - last 24 hr 09/24/23 09/24/23 09/24/23 21:25 22:02 23:23 MCV 93.6 MCH 30.0 MCHC 32.0 RDW 13.9 Plt Count 286 MPV 10.5 Immature Gran % (Auto) 0.5 H Neut % (Auto) 91.4 H Lymph % (Auto) 2.4 L [place] % (Auto) 5.5 Eos % (Auto) 0.0 Baso % (Auto) 0.2 Lymph # (Auto) 0.4 L [place] # (Auto) 1.0 Eos # (Auto) 0.0 Baso # (Auto) 0.0 Abs Immat Gran (auto) 0.08 H Absolute Neuts (auto) 15.9 H Absolute Nucleated RBC 0.000 Nucleated RBC % (auto) 0.0 Smear Tech's Comments VERIFIED PT 15.0 H INR 1.2 H VBG pH VBG pCO2 VBG pO2 VBG HCO3 VBG O2 Saturation VBG Base Excess Anion Gap 15 Estim Creat Clear Calc 33.0 Estimated GFR 37 POC Glucose 221 H Random Glucose 166 H Lactic Acid 1.8 Calcium 8.3 L Magnesium 2.1 Total Bilirubin 0.7 Direct Bilirubin 0.3 AST 12 ALT 8 Alkaline Phosphatase 74 Ammonia 21 Total Creatine Kinase 42 B-Natriuretic Peptide 115 H Total Protein 5.8 L Albumin 3.2 L Lipase 10 Influenza Type A (PCR) NEGATIVE Influenza Type B (PCR) NEGATIVE RSV RNA Qual (PCR) NEGATIVE SARS-CoV-2 RNA (RT-PCR) POSITIVE A Blood Type O Positive Antibody Screen NEGATIVE 09/24/23 09/25/23 23:36 00:00 MCV 94.1 MCH 30.0 MCHC 31.9 RDW 13.8 Plt Count 267 MPV 10.5 Immature Gran % (Auto) Neut % (Auto) Lymph % (Auto) [place] % (Auto) Eos % (Auto) Baso % (Auto) Lymph # (Auto) [place] # (Auto) Eos # (Auto) Baso # (Auto) Abs Immat Gran (auto) Absolute Neuts (auto) Absolute Nucleated RBC 0.000 Nucleated RBC % (auto) 0.0 Smear Tech's Comments PT INR VBG pH 7.48 H VBG pCO2 35 VBG pO2 46 VBG HCO3 26 VBG O2 Saturation 80.0 VBG Base Excess 3.1 Anion Gap Estim Creat Clear Calc Estimated GFR POC Glucose Random Glucose Lactic Acid Calcium Magnesium Total Bilirubin Direct Bilirubin AST ALT Alkaline Phosphatase Ammonia Total Creatine Kinase B-Natriuretic Peptide Total Protein Albumin Lipase Influenza Type A (PCR) Influenza Type B (PCR) RSV RNA Qual (PCR) SARS-CoV-2 RNA (RT-PCR) Blood Type Antibody Screen Imaging Radiologist's Impressions: Impressions Ankle X-Ray 09/24/23 23:01 IMPRESSION: 1. Unremarkable chest exam. 2. Unremarkable right ankle exam. 3. Healing fractures proximal third, fourth and fifth metatarsals. No acute fractures seen. There is moderate size calcaneal heel enthesophyte. Talipes equinus valgus deformity right foot. No acute fracture or dislocation seen. 4. Advanced DJD right hip joint. No acute fracture or dislocation seen. There is diffuse osteopenia. Chest X-Ray 09/24/23 23:01 IMPRESSION: 1. Unremarkable chest exam. 2. Unremarkable right ankle exam. 3. Healing fractures proximal third, fourth and fifth metatarsals. No acute fractures seen. There is moderate size calcaneal heel enthesophyte. Talipes equinus valgus deformity right foot. No acute fracture or dislocation seen. 4. Advanced DJD right hip joint. No acute fracture or dislocation seen. There is diffuse osteopenia. Hip/Pelvis X-Ray 09/24/23 23:01 IMPRESSION: 1. Unremarkable chest exam. 2. Unremarkable right ankle exam. 3. Healing fractures proximal third, fourth and fifth metatarsals. No acute fractures seen. There is moderate size calcaneal heel enthesophyte. Talipes equinus valgus deformity right foot. No acute fracture or dislocation seen. 4. Advanced DJD right hip joint. No acute fracture or dislocation seen. There is diffuse osteopenia. Cervical Spine CT 09/24/23 23:04 IMPRESSION: 1. No acute intracranial findings. 2. New 1.2 x 0.8 cm enhancing hyperdense extra-axial lesion along the left greater wing of the sphenoid bone causing slight regional mass effect, which may reflect a meningioma, however additional etiologies, such as dural based metastasis are not excluded. Recommend further evaluation with contrast-enhanced MRI. 3. No acute arterial occlusion or hemodynamically significant stenosis within the head or neck. 4. 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 5. No acute fracture or traumatic subluxatoin in the cervical spine. 6. Cervical spondylosis. Ventral epidural soft tissue spanning C3-C4 through C4-C5, presumably extruded disc material, contributing to apparent severe spinal canal stenosis and mass effect along the cord. Additional apparent multilevel mild to moderate spinal canal stenosis and varying degrees of neural foraminal narrowing. Consider further evaluation with cervical spine MRI there is referrable myelopathy/radiculopathy. Findings were discussed with Dr. Sutton at 11:30 PM on 09/24/2023 and it was ascertained that the content and urgency of the report was understood at the time of direct communication. Head CT 09/24/23 23:04 IMPRESSION: 1. No acute intracranial findings. 2. New 1.2 x 0.8 cm enhancing hyperdense extra-axial lesion along the left greater wing of the sphenoid bone causing slight regional mass effect, which may reflect a meningioma, however additional etiologies, such as dural based metastasis are not excluded. Recommend further evaluation with contrast-enhanced MRI. 3. No acute arterial occlusion or hemodynamically significant stenosis within the head or neck. 4. 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 5. No acute fracture or traumatic subluxatoin in the cervical spine. 6. Cervical spondylosis. Ventral epidural soft tissue spanning C3-C4 through C4-C5, presumably extruded disc material, contributing to apparent severe spinal canal stenosis and mass effect along the cord. Additional apparent multilevel mild to moderate spinal canal stenosis and varying degrees of neural foraminal narrowing. Consider further evaluation with cervical spine MRI there is referrable myelopathy/radiculopathy. Findings were discussed with Dr. Sutton at 11:30 PM on 09/24/2023 and it was ascertained that the content and urgency of the report was understood at the time of direct communication. Head/Neck CTA 09/24/23 23:04 IMPRESSION: 1. No acute intracranial findings. 2. New 1.2 x 0.8 cm enhancing hyperdense extra-axial lesion along the left greater wing of the sphenoid bone causing slight regional mass effect, which may reflect a meningioma, however additional etiologies, such as dural based metastasis are not excluded. Recommend further evaluation with contrast-enhanced MRI. 3. No acute arterial occlusion or hemodynamically significant stenosis within the head or neck. 4. 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 5. No acute fracture or traumatic subluxatoin in the cervical spine. 6. Cervical spondylosis. Ventral epidural soft tissue spanning C3-C4 through C4-C5, presumably extruded disc material, contributing to apparent severe spinal canal stenosis and mass effect along the cord. Additional apparent multilevel mild to moderate spinal canal stenosis and varying degrees of neural foraminal narrowing. Consider further evaluation with cervical spine MRI there is referrable myelopathy/radiculopathy. Findings were discussed with Dr. Sutton at 11:30 PM on 09/24/2023 and it was ascertained that the content and urgency of the report was understood at the time of direct communication. Assessment and Plan (1) Sphenoid mass: Status: Acute (2) Hematoma of thigh: Qualifiers: Encounter type: initial encounter Laterality: right Qualified Code(s): S70.11XA - Contusion of right thigh, initial encounter Status: Acute (3) Elevated WBC count: Qualifiers: Leukocytosis type: unspecified Qualified Code(s): D72.829 - Elevated white blood cell count, unspecified Status: Acute (4) COVID-19: Status: Acute Plan This is a 78-year-old female with pertinent history of dementia, unspecified, gastroesophageal reflux disease, essential hypertension, mixed hyperlipidemia, cardiomyopathy, ?seizure disorder who was sent to the emergency department for evaluation of slurred speech and confusion. Patient not keen on any intervention and wants to be comfort measures only. #. Slurred speech, confusion in a patient with extra-axial lesion along sphenoid bone causing mass effect #. Right thigh hematoma #. COVID-19 infection #. Alzheimer's dementia #. Cardiomyopathy #. Seizure disorder #. Gastroesophageal reflux disease #. Essential hypertension #. Mixed hyperlipidemia -Patient is very firm that she does not want any further investigations or interventions. She understands that extravasation of blood into her thigh may cause multiorgan dysfunction and . She states that she is ready to go and wants to focus on quality of life. The niece at bedside who is the healthcare proxy thinks that the patient is at baseline in terms of mentation. Case was discussed extensively with the patient and family at bedside. The niece wants to focus on comfort measures only. Code status changed. No more blood draws, imaging. Will discontinue scheduled prescription medications. Will initiate IV morphine drip and order IV Ativan p.r.n.. Quality Stroke Does the patient have a stroke diagnosis?: No VTE Prior VTE?: No VTE Risk Level:: Medical - moderate - high VTE Device Contraindication: Treatment Not Indicated VTE Drug Contraindication: Treatment Not Indicated
[2023-09-25] MEDS: 0.9 % Sodium Chloride 1,000 ML 50 ML IVCONT (02:15)
[2023-09-25] MEDS: Morphine Sulfate/NS 100 MG/100 ML PLAST..BAG IVCONT (02:16)
--- NOTE | 2023-09-25 04:16 | PC.NURSE ---
Patient COVID. +extravasation of blood into her thigh. Patient denies any interventions at this time. She states that she is ready to go and wants to focus on quality of life. sameera Rome, HCP at bedside. discussed with patient and her niece patient's prognosis and available treatment options. The niece wants to focus on comfort measures only. Code status changed to SURGICAL INSTRUMENT MAKER. Morphine drip started at 2 mg/hr. Patient reports pain in her right hip 4-5/100 at present, at comfortable level. She requested gregg jethro and tolerated well. Patient moved to a hospital bed, watching TV. Patent's niece at bedside, call varner within patien's reach.
--- NOTE | 2023-09-25 05:50 | PC.NURSE ---
Patient is alert and oriented x2. HR 63, RR 16. Patient reports pain in her right hip 5/10 at present, pain is at tolerable level. Morphine continuous infusing at 2 mg/hr. Patient watching TV, purewick in place, call varner in patient's reach.
--- NOTE | 2023-09-25 09:19 | PHA.MEDREC ---
Pharmacy Consult ? Medication Reconciliation Pharmacy has completed the medication reconciliation. List from [facility].
--- NOTE | 2023-09-25 10:17 | MHC.CM.PN ---
Romy 09/25/23, discussed on phone and faxed to niece / HCP, Yesenia Santamaria. Pt. lives at [facility], she see PCP at [facility], she does not have additional home health services, she uses a walker. Pt has a long history of not wanting any medical interventions, she does not like to be touched. HCP form requested, will be faxed here. HCP was not aware of Pt. using [facility] or going to [facility] in the past. CM to follow and assist with DC planning.
--- NOTE | 2023-09-25 13:00 | PC.NURSE ---
Hospice nurse came to see the pt, she did not interact with the nurse, did not answer the questions from the nurse. stated I just want to clothes my eyes . the nurse said that spoke with the pt's niece and was told that she is her own decision maker. she will follow-up with her niece.
--- NOTE | 2023-09-25 14:32 | MHC.CM.PN ---
CM spoke with niece, provider, [facility], and [facility] disease case manager rn about plan for pt. Pt wants to be on comfort measures only, HCP / Niece is in agreement and supportive. CM is exploring if Pt. can return to [facility], and has referred for [facility], and they will reach out to family to give information. Josse, disease case manager rn from [facility] program recommended that Pt be referred to SNF's that they are contacted with for care, and they can authorized care at the SNF level. CM to make referrals.
--- NOTE | 2023-09-25 16:00 | PC.NURSE ---
pt pulled out her iv stated I don't want it . morphine drip and NS was still running at the time when she pulled the iv out. Dr. Braga was notified, new order for po morphine q4 hrs.
--- NOTE | 2023-09-25 16:16 | MHC.EDTECH ---
THIS PCT ASSUMED CARE OF PT AT 1500 ,VITALS TAKEN ,CAL WALKER IS AWARE OF PT LOW O2 SAT OF 91 % AND LOW BP .
--- NOTE | 2023-09-25 16:30 | PC.NURSE ---
morphine was removed from the SCUDDING INSPECTOR pump, ended in dec and the remaining amount was wasted by 2 RNs (Jojo). the orthotist prosthetist farnsworth was removed and returned to [facility], 2 nurses present.
--- NOTE | 2023-09-25 17:49 | MHC.EDTECH ---
Patient blood sugar check ,patient remove the cardiac monitor technician ,her name band and blood band ,Patient said she does not want them on ,RN aware
[2023-09-25 17:55] LABS: Glucose, Whole Blood 142 mg/dL (60-115)
--- NOTE | 2023-09-25 18:09 | PC.NURSE ---
pt removed cardiac leads, pulled off her name band and threw both of them on the floor. she refused to have the leads and name band put back on her, stated leave me alone I don't want them .
--- NOTE | 2023-09-25 18:19 | PC.NURSE ---
This RN witnessed Morphine waste 72ml from PAYROLL BENEFITS CLERK pump PAYROLL BENEFITS CLERK farnsworth taken out under override and placed back under inventory count, Discrepancy made (as daniel thinks no farnsworth is in the cubby) pharmacy aware
[2023-09-26 03:34] VITALS: BP 130/62; PULSE 85; RESP 17; TEMP 37; O2SAT 94
[2023-09-26 03:37] VITALS: BP 130/62; PULSE 85; RESP 16; O2SAT 94
[2023-09-26] MEDS: Morphine Sulfate/NS 100 MG/100 ML PLAST..BAG IVCONT (03:37)
[2023-09-26] MEDS: 0.9 % Sodium Chloride 1,000 ML 50 ML IVCONT ×2 (03:38→18:06)
[2023-09-26 07:35] VITALS: BP 126/58; PULSE 90; RESP 18; TEMP 36.8; O2SAT 95
--- NOTE | 2023-09-26 10:21 | MHC.CM.PN ---
EMR REVIEWED, PER HOSPITALIST PT NOT QUALIFYING FOR [facility]NOSTIC[facility]/HOSPICE, P.T. EVAL PENDING FOR DISPO TO [facility] VS RETURN TO [facility], FAMILY VS BLS FOR TRANSPORT.
[2023-09-26 11:31] VITALS: BP 132/59; PULSE 90; RESP 18; TEMP 36.6; O2SAT 95
--- NOTE | 2023-09-26 11:52 | HO.PM.IMPN ---
Subjective Subjective Date of Service: 09/26/23 Interval History: pt seen and examined, awake alert, and eating and offered no complaint. Pain seems controlled. Physical Exam Vital Signs: Vital Signs: Last Vital Signs Temp 97.9 F 09/26/23 11:31 Pulse 90 09/26/23 11:31 Resp 18 09/26/23 11:31 BP 132/59 L 09/26/23 11:31 Pulse Ox 95 09/26/23 11:31 O2 Del Method Room Air 09/26/23 11:31 BMI result Body Mass Index 31.2 Const: Other: Elderly female lying in bed in no distress, awake alert, oriented to self and place Regular rate and rhythm, S1-S2 heard Regular breath sounds bilaterally, no wheezing or crackles appreciated Abdomen soft nontender, no guarding, no rigidity Patient is awake, alert and oriented to self, place, di Extremity: Right thigh with swelling consistent with hematoma Objective Data Active Medications Morphine Sulfate (Morphine Sulfate/Ns) 100 mg in 100 mls @ 0 mls/hr IVCONT .Q0M [facility]; Protocol Last Admin: 09/26/23 03:37 Dose: 2 mg/hr, 2 mls/hr Documented By: RAFI Sodium Chloride (Ns) 1,000 mls @ 50 mls/hr IVCONT .Q20H [facility] Last Admin: 09/26/23 03:38 Dose: 50 mls/hr Documented By: RAFI Lorazepam (Lorazepam 2 Mg/Ml Vial) 1 mg IVPUSH Q2H PRN PRN Reason: anxiety/restlessness Morphine Sulfate (Morphine Sulfate Oral Olivia 10 Mg/5 Ml Solution) 10 mg SUBLINGUAL Q4H PRN PRN Reason: Pain, Severe (Pain Scale 7-10) Sodium Chloride (0.9 % Sodium Chloride Flush 3 Ml Syringe) 3 ml IVFLUSH QSHIFT [facility] Last Admin: 09/26/23 09:22 Dose: Not Given Documented By: DANI Non-Admin Reason: IV Running Labs 09/25/23 00:00 09/24/23 23:23 Labs: Laboratory Results - last 24 hr 09/25/23 17:47 POC Glucose 142 H Microbiology Microbiology Results: Microbiology 09/24/23 22:02 Blood Culture - Preliminary Blood - Venous No growth after 24 hours. 09/24/23 22:02 Blood Culture - Preliminary Blood - Venous No growth after 24 hours. Assessment and Plan (1) Sphenoid mass: Status: Acute (2) Hematoma of thigh: Status: Acute Plan 78-year-old female with pertinent history of dementia, unspecified, gastroesophageal reflux disease, essential hypertension, mixed hyperlipidemia, cardiomyopathy, ?seizure disorder who was sent to the emergency department for evaluation of slurred speech and confusion and found to have right tigh hematoma #. Slurred speech, confusion in a patient with extra-axial lesion along sphenoid bone causing mass effect #. Right thigh hematoma, likely from unwitnessed fall #. COVID-19 infection #. Alzheimer's dementia #. Cardiomyopathy #. Seizure disorder #. Gastroesophageal reflux disease #. Essential hypertension #. Mixed hyperlipidemia -Patient has been very firm that she does not want any further testing or interventions. She understands she has issues that need further testing and management and if gone unchecked or treated can lead to her , at her baseline, she has continued to decline any intervention as documented by ED provider, admitting hospitalist and I had a separate conversation with the patient and her HCP Yesenia in the presence of the patient and ascertain that she wished not to have further testing or treated and just wanted to be comfortable. She has been on morphine drip but I think at this point can managed paliatively with PRN morphine rather than continuing infusion. I will also reqest a PT eval for assessent to see if able to return to [facility] living for paliative care Need for inpatient: Need placement Quality Stroke Does the patient have a stroke diagnosis?: No VTE Prior VTE?: No VTE Risk Level:: Medical - moderate - high VTE Device Contraindication: Treatment Not Indicated VTE Drug Contraindication: Treatment Not Indicated
[2023-09-26 15:52] VITALS: BP 144/64; PULSE 85; RESP 16; TEMP 36.8; O2SAT 94
[2023-09-26] MEDS: 0.9 % Sodium Chloride Flush 3 ML SYRINGE IVFLUSH (16:48)
[2023-09-26] MEDS: Morphine Sulfate 2 MG/ML CARTRIDGE IVPUSH (18:37)
[2023-09-26 19:13] VITALS: BP 131/61; PULSE 90; RESP 20; TEMP 37.1; O2SAT 96
[2023-09-27] VITALS (7 sets, daily range): BP systolic 137–165; BP diastolic 54–60; PULSE 69–91; RESP 16–20; TEMP 36.1–37.1; O2SAT 96–99
[2023-09-27] MEDS: Morphine Sulfate 2 MG/ML CARTRIDGE IVPUSH ×3 (01:20→23:18)
[2023-09-27] MEDS: Acetaminophen 325 MG TABLET 650 MG PO (04:34)
--- NOTE | 2023-09-27 13:53 | HO.PM.IMPN ---
Subjective Subjective Date of Service: 09/28/23 Interval History: Patient seen and examined, she offers no complaints, eating all mealls, pain seems to be controlled with PRN morphine Physical Exam Vital Signs: Vital Signs: Last Vital Signs Temp 98.1 F 09/27/23 11:16 Pulse 80 09/27/23 08:26 Resp 18 09/27/23 11:16 BP 165/60 H 09/27/23 08:26 Pulse Ox 98 09/27/23 08:26 O2 Del Method Room Air 09/27/23 03:28 BMI result Body Mass Index 31.2 Const: Other: Elderly female lying in bed in no distress, awake alert, oriented to self and place Regular rate and rhythm, S1-S2 heard Regular breath sounds bilaterally, no wheezing or crackles appreciated Abdomen soft nontender, no guarding, no rigidity Patient is awake, alert and oriented to self, place, d Extremity: Right thigh with swelling consistent with hematoma Objective Data Active Medications Acetaminophen (Acetaminophen 325 Mg Tablet) 650 mg PO Q6H PRN PRN Reason: Pain, Mild (Pain Scale 1-3) Last Admin: 09/27/23 04:34 Dose: 650 mg Documented By: STEPHEN Aspirin (Aspirin 81 Mg Tab.Chew) 81 mg PO DAILY [facility] Atorvastatin Calcium (Atorvastatin Calcium 20 Mg Tablet) 20 mg PO DAILY [facility] Azelastine HCl (Azelastine Hcl Nasal 137 Mcg/[place] 30 Ml) 2 spray NOSTRIL-B BID [facility] Bisacodyl (Bisacodyl 5 Mg Tablet.Dr) 5 mg PO DAILY PRN PRN Reason: Constipation Carbamide Peroxide (Carbamide Peroxide 6.5% Otic 15 Ml Drpbtl) 5 drop EAR-BOTH BID PRN PRN Reason: Ear Wax Carvedilol (Carvedilol 25 Mg Tablet) 25 mg PO BID [facility]; Protocol Cyanocobalamin (Cyanocobalamin (Vitamin B-12) 1,000 Mcg Tablet) 1,000 mcg PO MOWEFR@0900 [facility] Docusate Sodium (Docusate Sodium 100 Mg Capsule) 100 mg PO BID PRN PRN Reason: Constipation Escitalopram Oxalate (Escitalopram Oxalate 10 Mg Tablet) 10 mg PO DAILY [facility] Gabapentin (Gabapentin 100 Mg Capsule) 100 mg PO BEDTIME [facility] Loperamide HCl (Loperamide Hcl 2 Mg Capsule) 2 mg PO QID PRN PRN Reason: Diarrhea Lorazepam (Lorazepam 2 Mg/Ml Vial) 1 mg IVPUSH Q2H PRN PRN Reason: anxiety/restlessness Mesalamine (Mesalamine 400 Mg Cap.Drtab.) 1,600 mg PO BID [facility] Morphine Sulfate (Morphine Sulfate 2 Mg/Ml Cartridge) 2 mg IVPUSH Q2H PRN; Protocol PRN Reason: Pain, Severe (Pain Scale 7-10) Last Admin: 09/27/23 04:32 Dose: 2 mg Documented By: STEPHEN Multivitamins/Vitamin C (Multivitamin Tablet) 1 tab PO DAILY [facility] Nystatin (Nystatin Powder 15 Gm Bottle) 1 appl TOPICAL BID PRN; Protocol PRN Reason: Rash Omeprazole (Omeprazole 20 Mg Capsule.Dr) 20 mg PO DAILY@0630 [facility] Last Admin: 09/27/23 11:20 Dose: Not Given Documented By: DANI Non-Admin Reason: Patient Refused Polyethylene Glycol (Polyethylene Glycol 3350 17 Gm Powd.Pack) 17 gm PO DAILY PRN PRN Reason: Constipation Simethicone (Simethicone 80 Mg Tab.Chew) 120 mg PO TID PRN PRN Reason: bloating Sodium Chloride (0.9 % Sodium Chloride Flush 3 Ml Syringe) 3 ml IVFLUSH QSHIFT [facility] Last Admin: 09/27/23 08:49 Dose: Not Given Documented By: DANI Non-Admin Reason: IV Running Torsemide (Torsemide 20 Mg Tablet) 10 mg PO MOWEFR@0900 [facility]; Protocol Vitamin D (Cholecalciferol (Vitamin D3) 25 Mcg Tablet) 25 mcg PO DAILY [facility] Labs 09/25/23 00:00 09/24/23 23:23 Microbiology Microbiology Results: Microbiology 09/24/23 22:02 Blood Culture - Preliminary Blood - Venous No growth after 48 hours. 09/24/23 22:02 Blood Culture - Preliminary Blood - Venous No growth after 48 hours. 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 She understands she has issues that need further testing and management and if gone unchecked or treated can lead to her , at her baseline, she has continued to decline any intervention but is now willing to take medication, vital checks and is eating. I discussed management further with her and her care proxy and came to the conclusion to focus on paliative care, ok to continue routine medications so long as patient is willing to take them and ultimately goal of SNF palcement. Patient's routine meds have been ordered. She is eating all meals. PT recommends STR. Morphine by LABOR TRAINING MANAGER stopped, PRN morphine for pain Quality Stroke Does the patient have a stroke diagnosis?: No VTE Prior VTE?: No VTE Risk Level:: Medical - moderate - high VTE Device Contraindication: Treatment Not Indicated VTE Drug Contraindication: Treatment Not Indicated
[2023-09-27] MEDS: 0.9 % Sodium Chloride Flush 3 ML SYRINGE IVFLUSH (17:21)
--- NOTE | 2023-09-27 18:13 | HO.SKINPHOTO ---
Location: Category: Stage: Length: Width: Depth: cm Location: Category: Stage: Length: Width: Depth: cm Location: Category: Stage: Length: Width: Depth: cm Location: Category: Stage: Length: Width: Depth: cm Location: Category: Stage: Length: Width: Depth: cm Location: Category: Stage: Length: Width: Depth: cm
[2023-09-27] MEDS: Gabapentin 100 MG CAPSULE PO (22:48)
[2023-09-27] MEDS: Mesalamine 400 MG CAP.DRTAB. 1600 MG PO (22:48)
[2023-09-27] MEDS: carvediloL 25 MG TABLET PO (22:48)
[2023-09-27] MEDS: Azelastine HCl Nasal 137 MCG/Spray 30 ML 2 SPRAY NOSTRIL-B (23:37)
[2023-09-28] VITALS: BP 128/61; PULSE 73; RESP 18; TEMP 36.5; O2SAT 97
[2023-09-28 03:13] VITALS: BP 126/51; PULSE 80; RESP 18; TEMP 36.4; O2SAT 95
[2023-09-28 08:00] VITALS: RESP 18
[2023-09-28] MEDS: Morphine Sulfate 2 MG/ML CARTRIDGE IVPUSH ×3 (08:59→22:30)
[2023-09-28] MEDS: Cholecalciferol (Vitamin D3) 25 MCG TABLET PO (08:59)
[2023-09-28] MEDS: Omeprazole 20 MG CAPSULE.DR PO (09:00)
[2023-09-28] MEDS: Aspirin 81 MG TAB.CHEW PO (09:00)
[2023-09-28] MEDS: carvediloL 25 MG TABLET PO ×2 (09:00→21:59)
[2023-09-28] MEDS: Escitalopram Oxalate 10 MG TABLET PO (09:00)
[2023-09-28] MEDS: Mesalamine 400 MG CAP.DRTAB. 1600 MG PO ×2 (09:00→21:59)
[2023-09-28] MEDS: Multivitamin TABLET 1 TAB PO (09:00)
[2023-09-28] MEDS: Atorvastatin Calcium 20 MG TABLET PO (09:00)
[2023-09-28] MEDS: 0.9 % Sodium Chloride Flush 3 ML SYRINGE IVFLUSH ×2 (09:06→17:27)
[2023-09-28] MEDS: Azelastine HCl Nasal 137 MCG/Spray 30 ML 2 SPRAY NOSTRIL-B ×2 (09:13→22:04)
--- NOTE | 2023-09-28 10:22 | P.PNIM_ITS ---
Subjective Subjective Date of Service: 09/28/23 Interval History: F/u on fall left hip hematoma, initial slur speech, extra-axial lesion along sphenoid bone causing mass effect. She had declined all testing further testing and initially was made comfort care on IV morphine drip but now change to paliative care. She is offering no complaint this morning, she's eating all her meals, taking most meds and pain is controlled Physical Exam 2 Vital Signs: Vital Signs: Last Vital Signs Temp 97.5 F 09/28/23 03:13 Pulse 80 09/28/23 03:13 Resp 18 09/28/23 08:00 BP 126/51 L 09/28/23 03:13 Pulse Ox 95 09/28/23 03:13 O2 Del Method Room Air 09/28/23 03:13 BMI result Body Mass Index 31.2 Const: Other: Elderly female lying in bed in no distress, awake alert, oriented to self and place Regular rate and rhythm, S1-S2 heard Regular breath sounds bilaterally, no wheezing or crackles appreciated Abdomen soft nontender, no guarding, no rigidity Patient is awake, alert and oriented to self, place, d Extremity: Right thigh with swelling consistent with hematoma Objective Data Active Medications Acetaminophen (Acetaminophen 325 Mg Tablet) 650 mg PO Q6H PRN PRN Reason: Pain, Mild (Pain Scale 1-3) Last Admin: 09/27/23 04:34 Dose: 650 mg Documented By: STEPHEN Aspirin (Aspirin 81 Mg Tab.Chew) 81 mg PO DAILY [facility] Last Admin: 09/28/23 09:00 Dose: 81 mg Documented By: DANI Atorvastatin Calcium (Atorvastatin Calcium 20 Mg Tablet) 20 mg PO DAILY [facility] Last Admin: 09/28/23 09:00 Dose: 20 mg Documented By: DANI Azelastine HCl (Azelastine Hcl Nasal 137 Mcg/[place] 30 Ml) 2 spray NOSTRIL-B BID [facility] Last Admin: 09/28/23 09:13 Dose: 2 spray Documented By: DANI Bisacodyl (Bisacodyl 5 Mg Tablet.Dr) 5 mg PO DAILY PRN PRN Reason: Constipation Carbamide Peroxide (Carbamide [facility] 6.5% [facility] [facility] 5 drop EAR-BOTH BID PRN PRN Reason: Ear Wax Carvedilol (Carvedilol 25 Mg Tablet) 25 mg PO BID [facility]; Protocol Last Admin: 09/28/23 09:00 Dose: 25 mg Documented By: DANI Cyanocobalamin (Cyanocobalamin (Vitamin B-12) 1,000 Mcg Tablet) 1,000 mcg PO MOWEFR@0900 [facility] Docusate Sodium (Docusate Sodium 100 Mg Capsule) 100 mg PO BID PRN PRN Reason: Constipation Escitalopram Oxalate (Escitalopram Oxalate 10 Mg Tablet) 10 mg PO DAILY [facility] Last Admin: 09/28/23 09:00 Dose: 10 mg Documented By: DANI Gabapentin (Gabapentin 100 Mg Capsule) 100 mg PO BEDTIME [facility] Last Admin: 09/27/23 22:48 Dose: 100 mg Documented By: STEPHEN Loperamide HCl (Loperamide Hcl 2 Mg Capsule) 2 mg PO QID PRN PRN Reason: Diarrhea Lorazepam (Lorazepam 2 Mg/Ml Vial) 1 mg IVPUSH Q2H PRN PRN Reason: anxiety/restlessness Mesalamine (Mesalamine 400 Mg Cap.Drtab.) 1,600 mg PO BID [facility] Last Admin: 09/28/23 09:00 Dose: 1,600 mg Documented By: DANI Morphine Sulfate (Morphine Sulfate 2 Mg/Ml Cartridge) 2 mg IVPUSH Q2H PRN; Protocol PRN Reason: Pain, Severe (Pain Scale 7-10) Last Admin: 09/28/23 08:59 Dose: 2 mg Documented By: DANI Multivitamins/Vitamin C (Multivitamin Tablet) 1 tab PO DAILY [facility] Last Admin: 09/28/23 09:00 Dose: 1 tab Documented By: DANI Nystatin (Nystatin Powder 15 Gm Bottle) 1 appl TOPICAL BID PRN; Protocol PRN Reason: Rash Omeprazole (Omeprazole 20 Mg Capsule.Dr) 20 mg PO DAILY@0630 [facility] Last Admin: 09/28/23 09:00 Dose: 20 mg Documented By: DANI Polyethylene Glycol (Polyethylene Glycol 3350 17 Gm Powd.Pack) 17 gm PO DAILY PRN PRN Reason: Constipation Simethicone (Simethicone 80 Mg Tab.Chew) 120 mg PO TID PRN PRN Reason: bloating Sodium Chloride (0.9 % Sodium Chloride Flush 3 Ml Syringe) 3 ml IVFLUSH QSHIFT [facility] Last Admin: 09/28/23 09:06 Dose: 3 ml Documented By: DANI Torsemide (Torsemide 20 Mg Tablet) 10 mg PO MOWEFR@0900 [facility]; Protocol Vitamin D (Cholecalciferol (Vitamin D3) 25 Mcg Tablet) 25 mcg PO DAILY [facility] Last Admin: 09/28/23 08:59 Dose: 25 mcg Documented By: DANI Labs 09/25/23 00:00 09/24/23 23:23 Assessment and Plan (1) Sphenoid mass: Status: Acute (2) Dizziness: Status: Acute Plan 78-year-old female with pertinent history of dementia, unspecified, gastroesophageal reflux disease, essential hypertension, mixed hyperlipidemia, cardiomyopathy, ?seizure disorder who was sent to the emergency department for evaluation of slurred speech and confusion and found to have right tigh hematoma, likely frp, an unwintessed fall and found to have extra-axial lesion along sphenoid bone causing mass effect.. She has declined further testing and initially was made MA[employer] COASTWISE YACHT with IV morphine drip but following further discuss with patient and HCP, paliative care deemed more appropriated, she taking her usual meds, enjoying all her meals Still doesn't want further testing and therefore morphine drip discontinued in place of PRN morphine which is keeping her comfortable. Slurred speech, confusion in a patient with extra-axial lesion along sphenoid bone causing mass effect--no stroke, doesn't want further testing Right thigh hematoma, likely from unwitnessed fall, avoid anticoagulant, didn't participate in PT, recommendation is STR COVID-19 infection without symptoms Alzheimer's dementia Cardiomyopathy Seizure disorder, not on meds Gastroesophageal reflux disease Essential hypertension Mixed hyperlipidemia Patient has been very firm that she does not want any further testing or interventions. She understands she has issues that need further testing and management and if gone unchecked or treated can lead to her , at her baseline, she has continued to decline any intervention but is now willing to take medication, vital checks and is eating. I discussed management further with her and her care proxy and came to the conclusion to focus on paliative care, ok to continue routine medications so long as patient is willing to take them and ultimately goal of SNF palcement. Patient's routine meds have been ordered. She is eating all meals. PT recommends STR. Morphine by ANNOUNCER stopped, PRN morphine for pain.. Placement when rehab bed available. Quality Stroke Does the patient have a stroke diagnosis?: No VTE Prior VTE?: No VTE Risk Level:: Medical - moderate - high VTE Device Contraindication: Treatment Not Indicated VTE Drug Contraindication: Treatment Not Indicated
[2023-09-28] MEDS: Acetaminophen 325 MG TABLET 650 MG PO ×2 (11:00→22:01)
[2023-09-28 11:24] VITALS: BP 103/36; PULSE 66; RESP 18; TEMP 36.8; O2SAT 96
[2023-09-28 15:15] VITALS: BP 99/47; PULSE 65; RESP 18; TEMP 36.9; O2SAT 97
[2023-09-28 19:11] VITALS: BP 112/56; PULSE 71; RESP 18; TEMP 36.9; O2SAT 97
[2023-09-28] MEDS: Gabapentin 100 MG CAPSULE PO (22:03)
[2023-09-29] VITALS: BP 117/52; PULSE 63; RESP 18; TEMP 37; O2SAT 96
[2023-09-29 03:53] VITALS: BP 119/57; PULSE 69; RESP 19; TEMP 36.8; O2SAT 95
[2023-09-29] MEDS: Omeprazole 20 MG CAPSULE.DR PO (06:55)
[2023-09-29 07:19] VITALS: BP 116/47; PULSE 67; RESP 18; TEMP 36.7; O2SAT 97
[2023-09-29] MEDS: Torsemide 20 MG TABLET 10 MG PO (08:47)
[2023-09-29] MEDS: Escitalopram Oxalate 10 MG TABLET PO (08:48)
[2023-09-29] MEDS: Cyanocobalamin (Vitamin B-12) 1,000 MCG TABLET 1000 MCG PO (08:48)
[2023-09-29] MEDS: Multivitamin TABLET 1 TAB PO (08:48)
[2023-09-29] MEDS: Atorvastatin Calcium 20 MG TABLET PO (08:48)
[2023-09-29] MEDS: Aspirin 81 MG TAB.CHEW PO (08:48)
[2023-09-29] MEDS: Mesalamine 400 MG CAP.DRTAB. 1600 MG PO ×2 (08:48→20:05)
[2023-09-29] MEDS: carvediloL 25 MG TABLET PO ×2 (08:48→20:04)
[2023-09-29] MEDS: Cholecalciferol (Vitamin D3) 25 MCG TABLET PO (08:48)
[2023-09-29] MEDS: 0.9 % Sodium Chloride Flush 3 ML SYRINGE IVFLUSH ×3 (08:51→20:05)
[2023-09-29] MEDS: Azelastine HCl Nasal 137 MCG/Spray 30 ML 2 SPRAY NOSTRIL-B (08:55)
[2023-09-29 11:21] VITALS: BP 112/49; PULSE 67; RESP 18; TEMP 36.8; O2SAT 96
--- NOTE | 2023-09-29 14:17 | P.PNIM_ITS ---
Subjective Subjective Date of Service: 09/30/23 Interval History: Complaining of bilateral leg and right thigh pain also complaining of congested cough unable to bring up phlegm, denies fever, no chills, no nausea, no vomiting tolerating diet, no other acute events overnight. Review of Systems All other system reviewed and negative. Physical Exam 2 Vital Signs: Vital Signs: Last Vital Signs Temp 98.2 F 09/29/23 11:21 Pulse 67 09/29/23 11:21 Resp 18 09/29/23 11:21 BP 112/49 L 09/29/23 11:21 Pulse Ox 96 09/29/23 11:21 O2 Del Method Room Air 09/29/23 11:21 BMI result Body Mass Index 31.2 Const: Other: General lying in bed in no distress, awake alert, oriented to self and place Neck no JVD CVS Regular rate and rhythm, S1-S2 heard Resp : Regular breath sounds bilaterally, no wheezing or crackles appreciated Abdomen soft non tender, no guarding, no rigidity Neuro awake, alert and oriented to self, and place , face symmetrical, speech clear moving all 4 extremities Extremity: Bruising and Right thigh swelling consistent with hematoma, also bruising left thigh. Objective Data Active Medications Acetaminophen (Acetaminophen 325 Mg Tablet) 650 mg PO Q6H PRN PRN Reason: Pain, Mild (Pain Scale 1-3) Last Admin: 09/28/23 22:01 Dose: 650 mg Documented By: STEPHEN Aspirin (Aspirin 81 Mg Tab.Chew) 81 mg PO DAILY [facility] Last Admin: 09/29/23 08:48 Dose: 81 mg Documented By: CHECO Atorvastatin Calcium (Atorvastatin Calcium 20 Mg Tablet) 20 mg PO DAILY [facility] Last Admin: 09/29/23 08:48 Dose: 20 mg Documented By: CHECO Azelastine HCl (Azelastine Hcl Nasal 137 Mcg/[place] 30 Ml) 2 spray NOSTRIL-B BID [facility] Last Admin: 09/29/23 08:55 Dose: 2 spray Documented By: CHECO Bisacodyl (Bisacodyl 5 Mg Tablet.Dr) 5 mg PO DAILY PRN PRN Reason: Constipation Carbamide Peroxide (Carbamide Peroxide 6.5% Otic 15 Ml [facility]) 5 drop EAR-BOTH BID PRN PRN Reason: Ear Wax Carvedilol (Carvedilol 25 Mg Tablet) 25 mg PO BID [facility]; Protocol Last Admin: 09/29/23 08:48 Dose: 25 mg Documented By: CHECO Cyanocobalamin (Cyanocobalamin (Vitamin B-12) 1,000 Mcg Tablet) 1,000 mcg PO MOWEFR@0900 [facility] Last Admin: 09/29/23 08:48 Dose: 1,000 mcg Documented By: CHECO Docusate Sodium (Docusate Sodium 100 Mg Capsule) 100 mg PO BID PRN PRN Reason: Constipation Escitalopram Oxalate (Escitalopram Oxalate 10 Mg Tablet) 10 mg PO DAILY [facility] Last Admin: 09/29/23 08:48 Dose: 10 mg Documented By: CHECO Gabapentin (Gabapentin 100 Mg Capsule) 100 mg PO BEDTIME [facility] Last Admin: 09/28/23 22:03 Dose: 100 mg Documented By: STEPHEN Loperamide HCl (Loperamide Hcl 2 Mg Capsule) 2 mg PO QID PRN PRN Reason: Diarrhea Lorazepam (Lorazepam 2 Mg/Ml Vial) 1 mg IVPUSH Q2H PRN PRN Reason: anxiety/restlessness Mesalamine (Mesalamine 400 Mg Cap.Drtab.) 1,600 mg PO BID [facility] Last Admin: 09/29/23 08:48 Dose: 1,600 mg Documented By: CHECO Morphine Sulfate (Morphine Sulfate 2 Mg/Ml Cartridge) 2 mg IVPUSH Q2H PRN; Protocol PRN Reason: Pain, Severe (Pain Scale 7-10) Last Admin: 09/28/23 22:30 Dose: 2 mg Documented By: STEPHEN Multivitamins/Vitamin C (Multivitamin Tablet) 1 tab PO DAILY [facility] Last Admin: 09/29/23 08:48 Dose: 1 tab Documented By: CHECO Nystatin (Nystatin Powder 15 Gm Bottle) 1 appl TOPICAL BID PRN; Protocol PRN Reason: Rash Omeprazole (Omeprazole 20 Mg Capsule.Dr) 20 mg PO DAILY@0630 [facility] Last Admin: 09/29/23 06:55 Dose: 20 mg Documented By: STEPHEN Polyethylene Glycol (Polyethylene Glycol 3350 17 Gm Powd.Pack) 17 gm PO DAILY PRN PRN Reason: Constipation Simethicone (Simethicone 80 Mg Tab.Chew) 120 mg PO TID PRN PRN Reason: bloating Sodium Chloride (0.9 % Sodium Chloride Flush 3 Ml Syringe) 3 ml IVFLUSH QSHIFT [facility] Last Admin: 09/29/23 08:51 Dose: 3 ml Documented By: CHECO Torsemide (Torsemide 20 Mg Tablet) 10 mg PO MOWEFR@0900 [facility]; Protocol Last Admin: 09/29/23 08:47 Dose: 10 mg Documented By: CHECO Vitamin D (Cholecalciferol (Vitamin D3) 25 Mcg Tablet) 25 mcg PO DAILY [facility] Last Admin: 09/29/23 08:48 Dose: 25 mcg Documented By: CHECO Labs 09/30/23 06:39 09/30/23 06:39 Assessment and Plan (1) Sphenoid mass: Status: Acute (2) Dizziness: Status: Acute Plan 78-year-old female with pertinent history of dementia, unspecified, gastroesophageal reflux disease, essential hypertension, mixed hyperlipidemia, cardiomyopathy, ?seizure disorder who was sent to the emergency department for evaluation of slurred speech and confusion and found to have right thigh hematoma, likely from an unwintessed fall and found to have extra-axial lesion along sphenoid bone causing slight regional mass effect. She has declined further testing and initially was made LINING FELLER BLINDSTITCH with IV morphine drip but following further discuss with patient and HCP, palliative care deemed more appropriated, she is taking her usual meds, enjoying all her meals Still doesn't want further testing and therefore morphine drip discontinued and place on PRN morphine which is keeping her comfortable. Slurred speech, confusion in a patient with extra-axial lesion along sphenoid bone causing mass effect--no stroke, doesn't want further testing, confusion resolved speech clear, tolerating diet, treatment focus towards palliative care as per patient and healthcare proxy wishes Right thigh hematoma, likely from unwitnessed fall, avoid anticoagulant, didn't participate in PT, recommendation is STR , complaining of thigh pain continue analgesics, follow CBC. COVID-19 infection complaining of congested cough, no fevers, no hypoxia, will add cough medication. Alzheimer's dementia/mood disorder no behavioral issues, continue Lexapro Cardiomyopathy continue aspirin, Coreg, statins and torsemide. Seizure disorder, not on meds. Gastroesophageal reflux disease continue PPI denies reflux symptoms Essential hypertension on Coreg 25 mg b.i.d. soft blood pressures will follow. Mixed hyperlipidemia continue Lipitor DVT prophylaxis compression boots Code status DNR DNI Disposition waiting for for safe disposition to short-term rehab, patient is a resident of [facility] Quality Stroke Does the patient have a stroke diagnosis?: No VTE Prior VTE?: No VTE Risk Level:: Medical - moderate - high VTE Device Contraindication: Treatment Not Indicated VTE Drug Contraindication: Treatment Not Indicated
[2023-09-29 15:14] VITALS: BP 112/39; PULSE 74; RESP 18; TEMP 36.6; O2SAT 97
[2023-09-29] MEDS: Acetaminophen 325 MG TABLET 650 MG PO ×2 (17:23→20:05)
[2023-09-29] MEDS: guaiFENesin DM 200/20/10 ML 10 ML SYRUP PO ×2 (17:24→20:05)
[2023-09-29 19:08] VITALS: BP 103/52; PULSE 70; RESP 20; TEMP 36.3; O2SAT 95
[2023-09-29] MEDS: Gabapentin 100 MG CAPSULE PO (20:04)
[2023-09-29] MEDS: Morphine Sulfate 2 MG/ML CARTRIDGE IVPUSH (21:06)
[2023-09-30] VITALS (8 sets, daily range): BP systolic 107–122; BP diastolic 50–67; PULSE 62–79; RESP 16–20; TEMP 36.3–36.8; O2SAT 94–98; BMI 31.2
[2023-09-30] MEDS: Omeprazole 20 MG CAPSULE.DR PO (06:19)
[2023-09-30 07:18] LABS: Mean Corpuscular HGB Conc 30.4 g/dl (31.0-35.0); Mean Corpuscular Hemoglobin 29.1 pg (27.0-33.0); Mean Corpuscular Volume 95.8 fL (80.0-98.0); Mean Platelet Volume 10.1 fL (9.4-12.3); Platelet Count 308 X10*3/uL (160-400); Red Blood Count 2.13 X10*6/uL (4.20-5.50); Red Cell Distribution Width 13.8 % (11.0-16.0); White Blood Count 8.3 X10*3/uL (4.8-10.8)
[2023-09-30 07:38] LABS: Anion Gap 13 (12-20); Blood Urea Nitrogen 23 mg/dL (9-16); Calcium 7.9 mg/dL (8.4-10.2); Carbon Dioxide 24 mmol/L (22-29); Chloride 108 mmol/L (96-108); Creatinine Clr Calc Pharmacy 35.4; Estimated Glomerular Filt Rate 40; Glucose Random 107 mg/dL (60-115); Potassium 4.1 mmol/L (3.3-5.1); Sodium 141 mmol/L (135-145)
[2023-09-30 07:46] LABS: Hemoglobin 6.2 g/dl (12.0-16.0)
[2023-09-30 07:47] LABS: Hematocrit 20.4 % (37.0-47.0)
[2023-09-30] MEDS: guaiFENesin DM 200/20/10 ML 10 ML SYRUP PO ×3 (09:10→21:28)
[2023-09-30] MEDS: Multivitamin TABLET 1 TAB PO (09:12)
[2023-09-30] MEDS: Acetaminophen 325 MG TABLET 650 MG PO ×3 (09:12→21:28)
[2023-09-30] MEDS: 0.9 % Sodium Chloride Flush 3 ML SYRINGE IVFLUSH ×2 (09:12→16:23)
[2023-09-30] MEDS: Mesalamine 400 MG CAP.DRTAB. 1600 MG PO ×2 (09:12→21:28)
[2023-09-30] MEDS: Cholecalciferol (Vitamin D3) 25 MCG TABLET PO (09:12)
[2023-09-30] MEDS: carvediloL 25 MG TABLET PO ×2 (09:12→21:28)
[2023-09-30] MEDS: Atorvastatin Calcium 20 MG TABLET PO (09:12)
[2023-09-30] MEDS: Escitalopram Oxalate 10 MG TABLET PO (09:12)
--- NOTE | 2023-09-30 10:16 | MHC.CM.PN ---
EMR REVIEWED, PT H&h 6.2 & 20.4, PT REFUSING BLOOD TRANSFUSION, PER HOSPITALIST WILL DISCUSS W/FAMILY, CM WILL CONT TO FOLLOW DC NEEDS.
--- NOTE | 2023-09-30 12:37 | MHC.CLN ---
NUTRITION CONSULT FOR PRESSURE INJURY. DIET=REGULAR. IMPAIRED SKIN WITH STAGE II PRESSURE INJURIES TO RIGHT BUTTOCK AND COCCYX. ADDING ENSURE BID TO PROMOTE WOUND HEALING. PROVIDES 700 KCALS, 40 G PROTEIN. TOLERATING CURRENT DIET. CONTINUE REGULAR DIET WITH ENSURE BID. FOLLOW FOR INTAKE AND WOUND HEALING. SEE CLINICAL NUTRITION ASSESSMENT 09/30/23.
--- NOTE | 2023-09-30 12:48 | P.PNIM_ITS ---
Subjective Subjective Date of Service: 09/30/23 Interval History: Being followed for confusion, slurred speech Confusion and slurred speech resolved patient complaining of bilateral thigh pain, denies chest pain, no palpitations, no shortness of breath, complaining of cough no lightheadedness or dizziness patient is refusing blood transfusion. Review of Systems All other system reviewed and negative Physical Exam 2 Vital Signs: Vital Signs: Last Vital Signs Temp 98.3 F 09/30/23 11:39 Pulse 70 09/30/23 11:39 Resp 16 09/30/23 11:39 BP 120/56 L 09/30/23 11:39 Pulse Ox 95 09/30/23 11:39 O2 Del Method Room Air 09/30/23 11:39 BMI result Body Mass Index 31.2 Const: Other: General lying in bed in no distress, awake alert, oriented to self and place Neck no JVD CVS Regular rate and rhythm, S1-S2 heard Resp : Regular breath sounds bilaterally, no wheezing or crackles appreciated Abdomen soft, non tender, no guarding, no rigidity Neuro awake, alert and oriented to self, and place , face symmetrical, speech clear moving all 4 extremities Extremity: Bruising ,Right thigh swelling consistent with hematoma, also bruising left thigh. Psych appropriate affect Objective Data Active Medications Acetaminophen (Acetaminophen 325 Mg Tablet) 650 mg PO Q6H PRN PRN Reason: Pain, Mild (Pain Scale 1-3) Last Admin: 09/28/23 22:01 Dose: 650 mg Documented By: STEPHEN Acetaminophen (Acetaminophen 325 Mg Tablet) 650 mg PO TID [facility] Last Admin: 09/30/23 09:12 Dose: 650 mg Documented By: ЕКАТЕРИНА Aspirin (Aspirin 81 Mg Tab.Chew) 81 mg PO DAILY [facility] Last Admin: 09/30/23 09:12 Dose: Not Given Documented By: ЕКАТЕРИНА Non-Admin Reason: LOW H&H Atorvastatin Calcium (Atorvastatin Calcium 20 Mg Tablet) 20 mg PO DAILY [facility] Last Admin: 09/30/23 09:12 Dose: 20 mg Documented By: ЕКАТЕРИНА Azelastine HCl (Azelastine Hcl Nasal 137 Mcg/[place] 30 Ml) 2 spray NOSTRIL-B BID [facility] Last Admin: 09/30/23 09:13 Dose: Not Given Documented By: ЕКАТЕРИНА Non-Admin Reason: Patient Refused Bisacodyl (Bisacodyl 5 Mg Tablet.Dr) 5 mg PO DAILY PRN PRN Reason: Constipation Carbamide Peroxide (Carbamide Peroxide 6.5% Otic 15 Ml Drpbtl) 5 drop EAR-BOTH BID PRN PRN Reason: Ear Wax Carvedilol (Carvedilol 25 Mg Tablet) 25 mg PO BID [facility]; Protocol Last Admin: 09/30/23 09:12 Dose: 25 mg Documented By: ЕКАТЕРИНА Cyanocobalamin (Cyanocobalamin (Vitamin B-12) 1,000 Mcg Tablet) 1,000 mcg PO MOWEFR@0900 [facility] Last Admin: 09/29/23 08:48 Dose: 1,000 mcg Documented By: LESSARL Docusate Sodium (Docusate Sodium 100 Mg Capsule) 100 mg PO BID PRN PRN Reason: Constipation Escitalopram Oxalate (Escitalopram Oxalate 10 Mg Tablet) 10 mg PO DAILY [facility] Last Admin: 09/30/23 09:12 Dose: 10 mg Documented By: ЕКАТЕРИНА Gabapentin (Gabapentin 100 Mg Capsule) 100 mg PO BEDTIME [facility] Last Admin: 09/29/23 20:04 Dose: 100 mg Documented By: RAFI Guaifenesin/Dextromethorphan (Guaifenesin Dm 200/20/10 Ml 10 Ml Syrup) 10 ml PO TID [facility] Last Admin: 09/30/23 09:10 Dose: 10 ml Documented By: ЕКАТЕРИНА Loperamide HCl (Loperamide Hcl 2 Mg Capsule) 2 mg PO QID PRN PRN Reason: Diarrhea Mesalamine (Mesalamine 400 Mg Cap.Drtab.) 1,600 mg PO BID [facility] Last Admin: 09/30/23 09:12 Dose: 1,600 mg Documented By: ЕКАТЕРИНА Morphine Sulfate (Morphine Sulfate 2 Mg/Ml Cartridge) 2 mg IVPUSH Q2H PRN; Protocol PRN Reason: Pain, Severe (Pain Scale 7-10) Last Admin: 09/29/23 21:06 Dose: 2 mg Documented By: RAFI Multivitamins/Vitamin C (Multivitamin Tablet) 1 tab PO DAILY [facility] Last Admin: 09/30/23 09:12 Dose: 1 tab Documented By: ЕКАТЕРИНА Nystatin (Nystatin Powder 15 Gm Bottle) 1 appl TOPICAL BID PRN; Protocol PRN Reason: Rash Omeprazole (Omeprazole 20 Mg Capsule.Dr) 20 mg PO DAILY@0630 [facility] Last Admin: 09/30/23 06:19 Dose: 20 mg Documented By: RAFI Oxycodone HCl (Oxycodone Hcl Immed Release 5 Mg Tablet) 5 mg PO Q6H PRN PRN Reason: Pain, Moderate(Pain Scale 4-6) Polyethylene Glycol (Polyethylene Glycol 3350 17 Gm Powd.Pack) 17 gm PO DAILY PRN PRN Reason: Constipation Simethicone (Simethicone 80 Mg Tab.Chew) 120 mg PO TID PRN PRN Reason: bloating Sodium Chloride (0.9 % Sodium Chloride Flush 3 Ml Syringe) 3 ml IVFLUSH QSHIFT [facility] Last Admin: 09/30/23 09:12 Dose: 3 ml Documented By: ЕКАТЕРИНА Torsemide (Torsemide 20 Mg Tablet) 10 mg PO MOWEFR@0900 [facility]; Protocol Last Admin: 09/29/23 08:47 Dose: 10 mg Documented By: CHECO Vitamin D (Cholecalciferol (Vitamin D3) 25 Mcg Tablet) 25 mcg PO DAILY [facility] Last Admin: 09/30/23 09:12 Dose: 25 mcg Documented By: ЕКАТЕРИНА Labs 09/30/23 06:39 09/30/23 06:39 Labs: Laboratory Results - last 24 hr 09/30/23 06:39 MCV 95.8 MCH 29.1 MCHC 30.4 L RDW 13.8 Plt Count 308 MPV 10.1 Absolute Nucleated RBC 0.000 Nucleated RBC % (auto) 0.0 Smear Path Review Anion Gap 13 Estim Creat Clear Calc 35.4 Estimated GFR 40 Random Glucose 107 Calcium 7.9 L Microbiology Microbiology Results: Microbiology 09/24/23 22:02 Blood Culture - Final Blood - Venous No growth after 5 days. 09/24/23 22:02 Blood Culture - Final Blood - Venous No growth after 5 days. Assessment and Plan (1) Sphenoid mass: Status: Acute (2) Dizziness: Status: Acute Plan 78-year-old female with pertinent history of dementia, unspecified, gastroesophageal reflux disease, essential hypertension, mixed hyperlipidemia, cardiomyopathy, ?seizure disorder who was sent to the emergency department for evaluation of slurred speech and confusion and found to have right thigh hematoma, likely from an unwintessed fall and found to have extra-axial lesion along sphenoid bone causing slight regional mass effect. 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 Slurred speech, confusion all sxs resolved ct head showed extra-axial lesion along sphenoid bone causing mass effect--no stroke, doesn't want further testing, tolerating diet, treatment focus towards palliative care as per patient and healthcare proxy wishes. Acute on chronic normocytic anemia likely due to acute blood loss related right thigh hematoma Hematocrit 20.4 today dropped from 27.3 patient declined blood transfusion, spoke with patient niece Yesenia Santamaria regarding blood transfusion she agreed with patient's decision for no transfusion , informed patient and niece regarding complications related to anemia including chest pain, palpitations, [place], lightheadedness, dizziness and weakness. Will place patient on iron supplement, follow hematocrit Right thigh hematoma, likely from unwitnessed fall, avoid anticoagulant,PT recommendation is STR , today PT was not done due to anemia, complaining of thigh pain continue his scheduled Tylenol and as needed oxycodone will DC morphine, follow CBC. COVID-19 infection complaining of congested cough, no fevers, no hypoxia, continue cough medication. Alzheimer's dementia/mood disorder no behavioral issues, continue Lexapro Cardiomyopathy continue aspirin, Coreg, statins and torsemide. Seizure disorder, not on meds. Gastroesophageal reflux disease continue PPI denies reflux symptoms Essential hypertension on Coreg 25 mg b.i.d. soft blood pressures will follow. Mixed hyperlipidemia continue Lipitor. DVT prophylaxis compression boots. Code status DNR DNI Disposition waiting for for safe disposition to short-term rehab, patient is a resident of [facility] Quality Stroke Does the patient have a stroke diagnosis?: No VTE Prior VTE?: No VTE Risk Level:: Medical - moderate - high VTE Device Contraindication: Treatment Not Indicated VTE Drug Contraindication: Treatment Not Indicated
[2023-09-30] MEDS: Ascorbic Acid 250 MG TABLET PO (16:22)
[2023-09-30] MEDS: Ferrous Sulfate 324 MG TABLET.DR PO (16:22)
[2023-09-30] MEDS: Gabapentin 100 MG CAPSULE PO (21:28)
[2023-10-01 03:23] VITALS: BP 138/71; PULSE 74; RESP 20; TEMP 36.2; O2SAT 94
[2023-10-01] MEDS: Omeprazole 20 MG CAPSULE.DR PO (05:57)
[2023-10-01 07:50] VITALS: BP 132/62; PULSE 78; RESP 20; TEMP 36.5; O2SAT 98
[2023-10-01 09:35] LABS: Hematocrit 21.6 % (37.0-47.0)
[2023-10-01] MEDS: Cholecalciferol (Vitamin D3) 25 MCG TABLET PO (09:39)
[2023-10-01] MEDS: Escitalopram Oxalate 10 MG TABLET PO (09:39)
[2023-10-01] MEDS: Aspirin 81 MG TAB.CHEW PO (09:39)
[2023-10-01] MEDS: Acetaminophen 325 MG TABLET 650 MG PO ×3 (09:39→21:03)
[2023-10-01] MEDS: Mesalamine 400 MG CAP.DRTAB. 1600 MG PO ×2 (09:39→21:04)
[2023-10-01] MEDS: Ascorbic Acid 250 MG TABLET PO ×2 (09:39→15:39)
[2023-10-01] MEDS: Cyanocobalamin (Vitamin B-12) 1,000 MCG TABLET 1000 MCG PO (09:39)
[2023-10-01] MEDS: 0.9 % Sodium Chloride Flush 3 ML SYRINGE IVFLUSH ×3 (09:39→21:07)
[2023-10-01] MEDS: guaiFENesin DM 200/20/10 ML 10 ML SYRUP PO ×3 (09:40→21:03)
[2023-10-01] MEDS: carvediloL 25 MG TABLET PO ×2 (09:40→21:04)
[2023-10-01] MEDS: Torsemide 20 MG TABLET 10 MG PO (09:40)
[2023-10-01] MEDS: Atorvastatin Calcium 20 MG TABLET PO (09:40)
[2023-10-01] MEDS: Multivitamin TABLET 1 TAB PO (09:40)
[2023-10-01] MEDS: Docusate Sodium 100 MG CAPSULE PO (09:40)
[2023-10-01] MEDS: Ferrous Sulfate 324 MG TABLET.DR PO ×2 (09:40→15:39)
[2023-10-01 09:50] LABS: Hemoglobin 6.5 g/dl (12.0-16.0)
--- NOTE | 2023-10-01 10:08 | HO.WOUND ---
Wound Consult: Initial 78yr old female admitted to [facility] on 09/25/23 11:10? - See progress notes and H&P for detailed history. Wound consult placed for Coccyx and right Sacrum - arrival to bedside pt agreeable to assessment and photo documentation. Coccyx Etiology: Stage 2 Pressure Inury with MASD - IAD (Moisture Associated Skin Damage - Incontinence Associated Dermatitis) ?Present on Admission Measurements: see chart for detailed measurement Wound Bed: partial thickness tissue loss with pale pink moist wound bed - thin layer of yellow white slough noted - may be pseudo slough - will monitor Drainage / Odor: small amount of sanguineous drainage after cleansing Edges: ? Linear Kalyani wound: MASD - red pink purple blanchable mirrored edges tissue -? - Bruising noted - No Induration, Fluctuance or Warmth noted Pain: pain reported Goals of Treatment: ? Off Load pressure and barrier cream to treat and protect Right Sacrum Etiology: Stage 2 Pressure Inury with MASD - IAD (Moisture Associated Skin Damage - Incontinence Associated Dermatitis) ?Present on Admission Measurements: see chart for detailed measurement Wound Bed: partial thickness tissue loss with pale pink moist wound bed - thin layer of yellow white slough noted - may be pseudo slough - will monitor Drainage / Odor: small amount of sanguineous drainage after cleansing Edges: irregular Kalyani wound: MASD - red pink purple blanchable mirrored edges tissue -? Bruising noted - No Induration, Fluctuance or Warmth noted Pain: pain reported Goals of Treatment: ? Off Load pressure and barrier cream to treat and protect Recommendations: 1. Turn and Reposition every 2 hours and as needed for patient comfort. Use pillows to aid in positioning. 2. Off Load all bony prominences with use of pillows and heel boots if needed.? Apply Preventative foams where needed. ? 3. Monitor for incontinence and moisture control, use barrier creams when needed for prevention and treatment. Purewick in place. 4. Provide adequate and supplemental nutrition. 5. Continue low air loss mattress. 6. Sacrum and Coccyx - Off Load Pressure - Cleanse with PH balance spray or wipes, pat dry. ?Apply thin layer of Triad to wound bed - only pat and dab no scrub and rub when soiling occurs. Reapply thin layer PRN after each episode of incontinence. May cover with foam dressing to protect from moisture and friction. Re-consult wound care Nurse for wound deterioration or wound changes.
[2023-10-01] MEDS: oxyCODONE HCl Immed Release 5 MG TABLET PO ×2 (11:16→21:03)
[2023-10-01 11:40] VITALS: BP 115/50; PULSE 73; RESP 20; TEMP 36.8; O2SAT 94
--- NOTE | 2023-10-01 13:13 | MHC.CM.PN ---
Referrals out to SNF's, [facility] is following, family in agreement to pt going there. Provider wants to make sure that SNF understands that Pt is refusing transfusions, CM sent this message along with home info that they requested, awaiting response. CM to follow and assist with DC plan.
--- NOTE | 2023-10-01 13:35 | MHC.CLN ---
F/U PO INTAKE 100% X 3 MEALS DIET RX:REGULAR -APPROPRIATE IMPAIRED SKIN WITH STAGE II PRESSURE INJURIES TO RIGHT BUTTOCK AND COCCYX PT RECEIVING ENSURE BID TO PROMOTE WOUND HEALING PROVIDES 700 KCALS, 40 G PROTEIN FOLLOW FOR INTAKE AND IMPROVED WOUND HEALING
--- NOTE | 2023-10-01 14:17 | MHC.CM.PN ---
Josse, nurse from [facility] called to find out if we had found a SNF for pt. MADDI explained that we are waiting for [facility], and he said he will call there to speak with them about it. He also suggested I re-refer to [facility] and [facility], those referrals were sent.
--- NOTE | 2023-10-01 15:12 | P.PNIM_ITS ---
Subjective Subjective Date of Service: 10/01/23 Interval History: Being followed for acute on chronic normocytic anemia, right thigh hematoma and confusion. Confusion has resolved. Patient tolerating diet hemoglobin slightly better than yesterday, right thigh pain has improved, complaining of left knee pain today, complaining of dizziness, has declined blood transfusion, taking iron supplements, no other acute issues overnight. Review of Systems All other system reviewed and negative. Physical Exam 2 Vital Signs: Vital Signs: Last Vital Signs Temp 98.3 F 10/01/23 11:40 Pulse 73 10/01/23 11:40 Resp 20 10/01/23 11:40 BP 115/50 L 10/01/23 11:40 Pulse Ox 94 10/01/23 11:40 O2 Del Method Room Air 10/01/23 11:40 BMI result Body Mass Index 31.2 Const: Other: General lying in bed in no distress, awake alert, oriented to self and place Neck no JVD CVS Regular rate and rhythm, S1-S2 heard Resp : Regular breath sounds bilaterally, no wheezing or crackles appreciated Abdomen soft, non tender, no guarding, no rigidity Skin: pallor Neuro awake, alert and oriented to self, and place , face symmetrical, speech clear moving all 4 extremities Extremity: Bruising ,Right thigh swelling consistent with hematoma, also bruising left thigh, left knee no redness, or swelling. Psych appropriate affect Objective Data Active Medications Acetaminophen (Acetaminophen 325 Mg Tablet) 650 mg PO Q6H PRN PRN Reason: Pain, Mild (Pain Scale 1-3) Last Admin: 09/28/23 22:01 Dose: 650 mg Documented By: STEPHEN Acetaminophen (Acetaminophen 325 Mg Tablet) 650 mg PO TID [facility] Last Admin: 10/01/23 09:39 Dose: 650 mg Documented By: JUAN M Ascorbic Acid (Ascorbic Acid 250 Mg Tablet) 250 mg PO BIDWM [facility] Last Admin: 10/01/23 09:39 Dose: 250 mg Documented By: JUAN M Aspirin (Aspirin 81 Mg Tab.Chew) 81 mg PO DAILY [facility] Last Admin: 10/01/23 09:39 Dose: 81 mg Documented By: JUAN M Atorvastatin Calcium (Atorvastatin Calcium 20 Mg Tablet) 20 mg PO DAILY [facility] Last Admin: 10/01/23 09:40 Dose: 20 mg Documented By: JUAN M Azelastine HCl (Azelastine Hcl Nasal 137 Mcg/[place] 30 Ml) 2 spray NOSTRIL-B BID [facility] Last Admin: 10/01/23 09:40 Dose: Not Given Documented By: JUAN M Non-Admin Reason: Patient Refused Bisacodyl (Bisacodyl 5 Mg Tablet.) 5 mg PO DAILY PRN PRN Reason: Constipation Carbamide Peroxide (Carbamide Peroxide 6.5% Otic 15 Ml [facility]) 5 drop EAR-BOTH BID PRN PRN Reason: Ear Wax Carvedilol (Carvedilol 25 Mg Tablet) 25 mg PO BID [facility]; Protocol Last Admin: 10/01/23 09:40 Dose: 25 mg Documented By: JUAN M Cyanocobalamin (Cyanocobalamin (Vitamin B-12) 1,000 Mcg Tablet) 1,000 mcg PO MOWEFR@0900 [facility] Last Admin: 10/01/23 09:39 Dose: 1,000 mcg Documented By: JUAN M Docusate Sodium (Docusate Sodium 100 Mg Capsule) 100 mg PO BID PRN PRN Reason: Constipation Last Admin: 10/01/23 09:40 Dose: 100 mg Documented By: JUAN M Escitalopram Oxalate (Escitalopram Oxalate 10 Mg Tablet) 10 mg PO DAILY [facility] Last Admin: 10/01/23 09:39 Dose: 10 mg Documented By: JUAN M Ferrous Sulfate (Ferrous Sulfate 324 Mg Tablet.) 324 mg PO BIDWM [facility] Last Admin: 10/01/23 09:40 Dose: 324 mg Documented By: JUAN M Gabapentin (Gabapentin 100 Mg Capsule) 100 mg PO BEDTIME [facility] Last Admin: 09/30/23 21:28 Dose: 100 mg Documented By: RAFI Guaifenesin/Dextromethorphan (Guaifenesin Dm 200/20/10 Ml 10 Ml Syrup) 10 ml PO TID [facility] Last Admin: 10/01/23 09:40 Dose: 10 ml Documented By: JUAN M Loperamide HCl (Loperamide Hcl 2 Mg Capsule) 2 mg PO QID PRN PRN Reason: Diarrhea Mesalamine (Mesalamine 400 Mg Cap.) 1,600 mg PO BID [facility] Last Admin: 10/01/23 09:39 Dose: 1,600 mg Documented By: JUAN M Multivitamins/Vitamin C (Multivitamin Tablet) 1 tab PO DAILY [facility] Last Admin: 10/01/23 09:40 Dose: 1 tab Documented By: JUAN M Nystatin (Nystatin Powder 15 Gm Bottle) 1 appl TOPICAL BID PRN; Protocol PRN Reason: Rash Omeprazole (Omeprazole 20 Mg Capsule.Dr) 20 mg PO DAILY@0630 [facility] Last Admin: 10/01/23 05:57 Dose: 20 mg Documented By: RAFI Oxycodone HCl (Oxycodone Hcl Immed Release 5 Mg Tablet) 5 mg PO Q6H PRN PRN Reason: Pain, Moderate(Pain Scale 4-6) Last Admin: 10/01/23 11:16 Dose: 5 mg Documented By: JUAN M Polyethylene Glycol (Polyethylene Glycol 3350 17 Gm Powd.Pack) 17 gm PO DAILY PRN PRN Reason: Constipation Simethicone (Simethicone 80 Mg Tab.Chew) 120 mg PO TID PRN PRN Reason: bloating Sodium Chloride (0.9 % Sodium Chloride Flush 3 Ml Syringe) 3 ml IVFLUSH QSHIFT [facility] Last Admin: 10/01/23 09:39 Dose: 3 ml Documented By: JUAN M Torsemide (Torsemide 20 Mg Tablet) 10 mg PO MOWEFR@0900 [facility]; Protocol Last Admin: 10/01/23 09:40 Dose: 10 mg Documented By: JUAN M Vitamin D (Cholecalciferol (Vitamin D3) 25 Mcg Tablet) 25 mcg PO DAILY [facility] Last Admin: 10/01/23 09:39 Dose: 25 mcg Documented By: JUAN M Labs 10/01/23 08:38 09/30/23 06:39 Assessment and Plan (1) Sphenoid mass: Status: Acute (2) Dizziness: Status: Acute Plan 78-year-old female with pertinent history of dementia, unspecified, gastroesophageal reflux disease, essential hypertension, mixed hyperlipidemia, cardiomyopathy, ?seizure disorder who was sent to the emergency department for evaluation of slurred speech and confusion and found to have right thigh hematoma, likely from an unwintessed fall and found to have extra-axial lesion along sphenoid bone causing slight regional mass effect. 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 Slurred speech, confusion all sxs resolved ct head showed extra-axial lesion along sphenoid bone causing mass effect--no stroke, doesn't want further testing, tolerating diet, treatment focus towards palliative care as per patient and healthcare proxy wishes. Acute on chronic normocytic anemia likely due to acute blood loss related right thigh hematoma Hematocrit improved to 21.6 from 20.4 tolerating iron supplements, has declined blood transfusion. Right thigh hematoma, likely from unwitnessed fall, avoid anticoagulant,PT recommendation is STR , Continue scheduled Tylenol and as needed oxycodone , for left knee pain will place on lidocaine patch. COVID-19 infection no fevers, no hypoxia, cough improved, continue cough medication. Alzheimer's dementia/mood disorder no behavioral issues, continue Lexapro Cardiomyopathy continue aspirin, Coreg, statins and torsemide. Seizure disorder, not on meds. Gastroesophageal reflux disease continue PPI denies reflux symptoms Essential hypertension on Coreg 25 mg b.i.d. soft blood pressures will follow. Mixed hyperlipidemia continue Lipitor. DVT prophylaxis compression boots. Code status DNR DNI Disposition waiting for for safe disposition to short-term rehab, patient is a resident of [facility].CM looking for bed. Quality Stroke Does the patient have a stroke diagnosis?: No VTE Prior VTE?: No VTE Risk Level:: Medical - moderate - high VTE Device Contraindication: Treatment Not Indicated VTE Drug Contraindication: Treatment Not Indicated
[2023-10-01 15:29] VITALS: BP 108/64; PULSE 68; RESP 18; TEMP 36.2; O2SAT 95
[2023-10-01] MEDS: Lidocaine 4 % Patch ADH..PATCH 1 PATCH TRANSDERMA (15:39)
[2023-10-01 18:44] LABS: COVID-19 Test Negative (Negative); IDNOW Serial# BCCEAD1C
[2023-10-01 19:24] VITALS: BP 106/54; PULSE 70; RESP 20; TEMP 36.5; O2SAT 96
[2023-10-01] MEDS: Gabapentin 100 MG CAPSULE PO (21:04)
[2023-10-01 23:33] VITALS: BP 112/56; PULSE 70; RESP 18; TEMP 37.1; O2SAT 95
[2023-10-02] VITALS (8 sets, daily range): BP systolic 102–134; BP diastolic 44–65; PULSE 67–101; RESP 18–24; TEMP 36.2–36.8; O2SAT 93–99
[2023-10-02] MEDS: Omeprazole 20 MG CAPSULE.DR PO (05:04)
[2023-10-02] MEDS: oxyCODONE HCl Immed Release 5 MG TABLET PO ×2 (05:04→15:32)
[2023-10-02] MEDS: Mesalamine 400 MG CAP.DRTAB. 1600 MG PO ×2 (08:49→23:39)
[2023-10-02] MEDS: Multivitamin TABLET 1 TAB PO (08:50)
[2023-10-02] MEDS: Acetaminophen 325 MG TABLET 650 MG PO ×3 (08:50→23:41)
[2023-10-02] MEDS: Cholecalciferol (Vitamin D3) 25 MCG TABLET PO (08:50)
[2023-10-02] MEDS: Ascorbic Acid 250 MG TABLET PO ×2 (08:50→15:32)
[2023-10-02] MEDS: Ferrous Sulfate 324 MG TABLET.DR PO ×2 (08:50→15:31)
[2023-10-02] MEDS: 0.9 % Sodium Chloride Flush 3 ML SYRINGE IVFLUSH ×2 (08:50→15:33)
[2023-10-02] MEDS: Atorvastatin Calcium 20 MG TABLET PO (08:50)
[2023-10-02] MEDS: carvediloL 25 MG TABLET PO ×2 (08:50→23:41)
[2023-10-02] MEDS: Escitalopram Oxalate 10 MG TABLET PO (08:50)
[2023-10-02] MEDS: Aspirin 81 MG TAB.CHEW PO (08:50)
[2023-10-02] MEDS: Lidocaine 4 % Patch ADH..PATCH 1 PATCH TRANSDERMA (08:55)
--- NOTE | 2023-10-02 15:09 | P.PNIM_ITS ---
Subjective Subjective Date of Service: 10/02/23 Interval History: Resting comfortably complaining of left knee pain but better since yesterday, still complaining of cough, no congestion, no shortness of breath, no fevers, no chills tolerating diet no nausea, no vomiting, no abdominal pain no other acute issues overnight. Review of Systems All other system reviewed and negative. Physical Exam 2 Vital Signs: Vital Signs: Last Vital Signs Temp 98.3 F 10/02/23 12:00 Pulse 78 10/02/23 12:00 Resp 18 10/02/23 12:00 BP 134/62 10/02/23 12:00 Pulse Ox 97 10/02/23 12:00 O2 Del Method Room Air 10/02/23 12:00 BMI result Body Mass Index 31.2 Const: Other: General lying in bed in no distress, awake alert, oriented to self and place Neck no JVD CVS Regular rate and rhythm, S1-S2 heard Resp : Regular breath sounds bilaterally, no wheezing or crackles appreciated Abdomen soft, non tender, no guarding, no rigidity Skin: pallor Neuro awake, alert and oriented to self, and place , face symmetrical, speech clear moving all 4 extremities Extremity: Bruising ,Right thigh swelling consistent with hematoma, also bruising left thigh, left knee no redness, or swelling, no tenderness to palpation. Psych appropriate affect Objective Data Active Medications Acetaminophen (Acetaminophen 325 Mg Tablet) 650 mg PO Q6H PRN PRN Reason: Pain, Mild (Pain Scale 1-3) Last Admin: 09/28/23 22:01 Dose: 650 mg Documented By: STEPHEN Acetaminophen (Acetaminophen 325 Mg Tablet) 650 mg PO TID [facility] Last Admin: 10/02/23 08:50 Dose: 650 mg Documented By: RITCHIE Ascorbic Acid (Ascorbic Acid 250 Mg Tablet) 250 mg PO BIDWM [facility] Last Admin: 10/02/23 08:50 Dose: 250 mg Documented By: RITCHIE Aspirin (Aspirin 81 Mg Tab.Chew) 81 mg PO DAILY [facility] Last Admin: 10/02/23 08:50 Dose: 81 mg Documented By: RITCHIE Atorvastatin Calcium (Atorvastatin Calcium 20 Mg Tablet) 20 mg PO DAILY [facility] Last Admin: 10/02/23 08:50 Dose: 20 mg Documented By: RITCHIE Azelastine HCl (Azelastine Hcl Nasal 137 Mcg/[place] 30 Ml) 2 spray NOSTRIL-B BID [facility] Last Admin: 10/02/23 08:51 Dose: Not Given Documented By: RITCHIE Non-Admin Reason: Patient Refused Bisacodyl (Bisacodyl 5 Mg Tablet.) 5 mg PO DAILY PRN PRN Reason: Constipation Carbamide Peroxide (Carbamide Peroxide 6.5% Otic 15 Ml Drpb) 5 drop EAR-BOTH BID PRN PRN Reason: Ear Wax Carvedilol (Carvedilol 25 Mg Tablet) 25 mg PO BID [facility]; Protocol Last Admin: 10/02/23 08:50 Dose: 25 mg Documented By: RITCHIE Cyanocobalamin (Cyanocobalamin (Vitamin B-12) 1,000 Mcg Tablet) 1,000 mcg PO MOWEFR@0900 [facility] Last Admin: 10/01/23 09:39 Dose: 1,000 mcg Documented By: JUAN M Docusate Sodium (Docusate Sodium 100 Mg Capsule) 100 mg PO BID PRN PRN Reason: Constipation Last Admin: 10/01/23 09:40 Dose: 100 mg Documented By: JUAN M Escitalopram Oxalate (Escitalopram Oxalate 10 Mg Tablet) 10 mg PO DAILY [facility] Last Admin: 10/02/23 08:50 Dose: 10 mg Documented By: RITCHIE Ferrous Sulfate (Ferrous Sulfate 324 Mg Tablet.) 324 mg PO BIDWM [facility] Last Admin: 10/02/23 08:50 Dose: 324 mg Documented By: RITCHIE Gabapentin (Gabapentin 100 Mg Capsule) 100 mg PO BEDTIME [facility] Last Admin: 10/01/23 21:04 Dose: 100 mg Documented By: JAN Guaifenesin/Dextromethorphan (Guaifenesin Dm 200/20/10 Ml 10 Ml Syrup) 10 ml PO TID [facility] Last Admin: 10/02/23 08:52 Dose: Not Given Documented By: RITCHIE Non-Admin Reason: Patient Refused Lidocaine (Lidocaine 4 % Patch Adh..Patch) 1 patch TRANSDERMA DAILY [facility]; Protocol Last Admin: 10/02/23 08:55 Dose: 1 patch Documented By: RITCHIE Loperamide HCl (Loperamide Hcl 2 Mg Capsule) 2 mg PO QID PRN PRN Reason: Diarrhea Mesalamine (Mesalamine 400 Mg Cap.Drtab.) 1,600 mg PO BID [facility] Last Admin: 10/02/23 08:49 Dose: 1,600 mg Documented By: RITCHIE Multivitamins/Vitamin C (Multivitamin Tablet) 1 tab PO DAILY [facility] Last Admin: 10/02/23 08:50 Dose: 1 tab Documented By: RITCHIE Nystatin (Nystatin Powder 15 Gm Bottle) 1 appl TOPICAL BID PRN; Protocol PRN Reason: Rash Omeprazole (Omeprazole 20 Mg Capsule.Dr) 20 mg PO DAILY@0630 [facility] Last Admin: 10/02/23 05:04 Dose: 20 mg Documented By: JAN Oxycodone HCl (Oxycodone Hcl Immed Release 5 Mg Tablet) 5 mg PO Q6H PRN PRN Reason: Pain, Moderate(Pain Scale 4-6) Last Admin: 10/02/23 05:04 Dose: 5 mg Documented By: JAN Polyethylene Glycol (Polyethylene Glycol 3350 17 Gm Powd.Pack) 17 gm PO DAILY PRN PRN Reason: Constipation Simethicone (Simethicone 80 Mg Tab.Chew) 120 mg PO TID PRN PRN Reason: bloating Sodium Chloride (0.9 % Sodium Chloride Flush 3 Ml Syringe) 3 ml IVFLUSH QSHIFT [facility] Last Admin: 10/02/23 08:50 Dose: 3 ml Documented By: RITCHIE Torsemide (Torsemide 20 Mg Tablet) 10 mg PO MOWEFR@0900 [facility]; Protocol Last Admin: 10/01/23 09:40 Dose: 10 mg Documented By: JUAN M Vitamin D (Cholecalciferol (Vitamin D3) 25 Mcg Tablet) 25 mcg PO DAILY [facility] Last Admin: 10/02/23 08:50 Dose: 25 mcg Documented By: RITCHIE Labs 10/01/23 08:38 09/30/23 06:39 Labs: Laboratory Results - last 24 hr 10/01/23 18:00 COVID-19 ([facility]) Negative COVID-19 Clin Com See Note Assessment and Plan (1) Sphenoid mass: Status: Acute (2) Dizziness: Status: Acute Plan 78-year-old female with pertinent history of dementia, unspecified, gastroesophageal reflux disease, essential hypertension, mixed hyperlipidemia, cardiomyopathy, ?seizure disorder who was sent to the emergency department for evaluation of slurred speech and confusion and found to have right thigh hematoma, likely from an unwintessed fall and found to have extra-axial lesion along sphenoid bone causing slight regional mass effect. 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 Slurred speech, confusion all sxs resolved ct head showed extra-axial lesion along sphenoid bone causing mass effect--no stroke, doesn't want further testing, tolerating diet, treatment focus towards palliative care as per patient and healthcare proxy wishes. No recurrent episodes of confusion Acute on chronic normocytic anemia likely due to acute blood loss related right thigh hematoma Hematocrit improved to 21.6 from 20.4 tolerating iron supplements, has declined blood transfusion. Right thigh hematoma, likely from unwitnessed fall, avoid anticoagulant,PT recommendation is STR , Continue scheduled Tylenol and as needed oxycodone , for left knee pain will place on lidocaine patch. Pain improving COVID-19 infection no fevers, no hypoxia, continue cough medication, patient feels cough syrup not helping will add as needed tessalon pearle. Alzheimer's dementia/mood disorder no behavioral issues, continue Lexapro Cardiomyopathy continue aspirin, Coreg, statins and torsemide. Seizure disorder, not on meds. Gastroesophageal reflux disease continue PPI denies reflux symptoms Essential hypertension on Coreg 25 mg b.i.d. soft blood pressures will follow. Mixed hyperlipidemia continue Lipitor. DVT prophylaxis compression boots. Code status DNR DNI Disposition waiting for for safe disposition to short-term rehab, patient is a resident of [facility].CM looking for bed. Quality Stroke Does the patient have a stroke diagnosis?: No VTE Prior VTE?: No VTE Risk Level:: Medical - moderate - high VTE Device Contraindication: Treatment Not Indicated VTE Drug Contraindication: Treatment Not Indicated
[2023-10-02] MEDS: Benzonatate 100 MG CAPSULE PO (15:32)
[2023-10-02] MEDS: Gabapentin 100 MG CAPSULE PO (23:40)
[2023-10-03 03:20] VITALS: BP 114/56; PULSE 68; RESP 18; TEMP 36.7; O2SAT 97
[2023-10-03] MEDS: Omeprazole 20 MG CAPSULE.DR PO (05:58)
[2023-10-03] MEDS: Acetaminophen 325 MG TABLET 650 MG PO ×3 (06:02→23:13)
[2023-10-03 07:24] VITALS: BP 124/69; PULSE 66; RESP 16; TEMP 36.3; O2SAT 95
[2023-10-03] MEDS: oxyCODONE HCl Immed Release 5 MG TABLET PO (07:52)
[2023-10-03] MEDS: Benzonatate 100 MG CAPSULE PO ×2 (07:52→15:35)
[2023-10-03] MEDS: Mesalamine 400 MG CAP.DRTAB. 1600 MG PO ×2 (07:53→23:13)
[2023-10-03] MEDS: Escitalopram Oxalate 10 MG TABLET PO (07:54)
[2023-10-03] MEDS: Multivitamin TABLET 1 TAB PO (07:54)
[2023-10-03] MEDS: Ascorbic Acid 250 MG TABLET PO ×2 (07:54→15:35)
[2023-10-03] MEDS: carvediloL 25 MG TABLET PO ×2 (07:54→23:14)
[2023-10-03] MEDS: Aspirin 81 MG TAB.CHEW PO (07:54)
[2023-10-03] MEDS: Atorvastatin Calcium 20 MG TABLET PO (07:54)
[2023-10-03] MEDS: Torsemide 20 MG TABLET 10 MG PO (07:54)
[2023-10-03] MEDS: Ferrous Sulfate 324 MG TABLET.DR PO ×2 (07:54→15:35)
[2023-10-03] MEDS: Cholecalciferol (Vitamin D3) 25 MCG TABLET PO (07:54)
[2023-10-03] MEDS: Cyanocobalamin (Vitamin B-12) 1,000 MCG TABLET 1000 MCG PO (07:54)
[2023-10-03] MEDS: 0.9 % Sodium Chloride Flush 3 ML SYRINGE IVFLUSH ×4 (07:55→23:15)
[2023-10-03] MEDS: Lidocaine 4 % Patch ADH..PATCH 1 PATCH TRANSDERMA (07:55)
[2023-10-03 08:00] VITALS: BP 124/69; PULSE 66; RESP 16; TEMP 36.3; O2SAT 95
--- NOTE | 2023-10-03 10:46 | MHC.CM.PN ---
EMR reviewed and per MD rounds, pt is medically cleared for D/C pending STR placemet. Sabrina chery sent message via [employer] on 10/02 @16:36 from liaison Nabeel saying please call me tomorrow @ [phone] . This CM called Nabeel at provided number this morning at approx. 8:30am, Nabeel stated she was on her way in and would call back. No return call received. This CM called and left a message for Nabeel at 10:45am, awaiting return call.
--- NOTE | 2023-10-03 10:51 | MHC.CM.PN ---
Addendum entered by Blanca Sinha 10/03/23 12:35: Received a return call from Nabeel at [facility], they are able to accept pt and are going for auth now. Original Note: EMR reviewed and per MD rounds, pt is medically cleared for D/C pending STR placement. [facility] sent message via [employer] on 10/02 @16:36 from liafelecia Lees saying please call me tomorrow @ [phone] . This CM called Nabeel at provided number this morning at approx. 8:30am, Nabeel stated she was on her way in and would call back. No return call received. This CM called and left a message for Nabeel at 10:45am, awaiting return call.
[2023-10-03 11:19] VITALS: BP 111/51; PULSE 71; RESP 18; TEMP 36.7; O2SAT 95
--- NOTE | 2023-10-03 14:46 | MHC.CLN ---
F/U PO INTAKE EXCELELNT DIET RX:REGULAR -APPROPRIATE PT RECEIVING ENSURE BID TO PROMOTE WOUND HEALING PROVIDES 700 KCALS, 40 G PROTEIN CONTINUE TO MONITOR PO INTAKE AND ENCOURAGE SUPPLEMENTS
--- NOTE | 2023-10-03 15:39 | MHC.CM.PN ---
Second IMM given 10/03. This CM received phone call from Josse from [facility] and he is giving auth for STR for pt. Plan will be for her to D/C to [facility] tomorrow 10/04. Pts niece/HCP Yesenia notified.
--- NOTE | 2023-10-03 15:41 | P.PNIM_ITS ---
Subjective Subjective Date of Service: 10/03/23 Interval History: Offers no acute complaints left knee pain is stable, feels cough syrup is not helping but Kelly Martinez worked better for her cough, denies fever chills tolerating diet, refusing out of bed to chair. Review of Systems All other system reviewed and negative. Physical Exam 2 Vital Signs: Vital Signs: Last Vital Signs Temp 98.0 F 10/03/23 11:19 Pulse 71 10/03/23 11:19 Resp 18 10/03/23 11:19 BP 111/51 L 10/03/23 11:19 Pulse Ox 95 10/03/23 11:19 O2 Del Method Room Air 10/03/23 11:19 O2 Flow Rate 2 10/02/23 15:08 BMI result Body Mass Index 31.2 Const: Other: General sitting in bed in no distress, awake alert, oriented to self and place Neck no JVD CVS Regular rate and rhythm, S1-S2 heard Resp : Regular breath sounds bilaterally, no wheezing or crackles appreciated Abdomen soft, non tender, no guarding, no rigidity Skin: pallor Neuro awake, alert and oriented to self, and place , face symmetrical, speech clear moving all 4 extremities Extremity: Right thigh as swelling and bruising improving Psych appropriate affect Objective Data Active Medications Acetaminophen (Acetaminophen 325 Mg Tablet) 650 mg PO Q6H PRN PRN Reason: Pain, Mild (Pain Scale 1-3) Last Admin: 10/03/23 06:02 Dose: 650 mg Documented By: JAN Acetaminophen (Acetaminophen 325 Mg Tablet) 650 mg PO TID [facility] Last Admin: 10/03/23 15:35 Dose: 650 mg Documented By: RITCHIE Ascorbic Acid (Ascorbic Acid 250 Mg Tablet) 250 mg PO BIDWM [facility] Last Admin: 10/03/23 15:35 Dose: 250 mg Documented By: RITCHIE Aspirin (Aspirin 81 Mg Tab.Chew) 81 mg PO DAILY [facility] Last Admin: 10/03/23 07:54 Dose: 81 mg Documented By: RITCHIE Atorvastatin Calcium (Atorvastatin Calcium 20 Mg Tablet) 20 mg PO DAILY [facility] Last Admin: 10/03/23 07:54 Dose: 20 mg Documented By: RITCHIE Azelastine HCl (Azelastine Hcl Nasal 137 Mcg/[place] 30 Ml) 2 spray NOSTRIL-B BID [facility] Last Admin: 10/03/23 07:56 Dose: Not Given Documented By: RITCHIE Non-Admin Reason: Patient Refused Benzonatate (Benzonatate 100 Mg Capsule) 100 mg PO TID PRN PRN Reason: Cough Last Admin: 10/03/23 15:35 Dose: 100 mg Documented By: RITCHIE Bisacodyl (Bisacodyl 5 Mg Tablet.) 5 mg PO DAILY PRN PRN Reason: Constipation Carbamide Peroxide (Carbamide Peroxide 6.5% Otic 15 Ml Drpbtl) 5 drop EAR-BOTH BID PRN PRN Reason: Ear Wax Carvedilol (Carvedilol 25 Mg Tablet) 25 mg PO BID [facility]; Protocol Last Admin: 10/03/23 07:54 Dose: 25 mg Documented By: RITCHIE Cyanocobalamin (Cyanocobalamin (Vitamin B-12) 1,000 Mcg Tablet) 1,000 mcg PO MOWEFR@0900 [facility] Last Admin: 10/03/23 07:54 Dose: 1,000 mcg Documented By: RITCHIE Docusate Sodium (Docusate Sodium 100 Mg Capsule) 100 mg PO BID PRN PRN Reason: Constipation Last Admin: 10/01/23 09:40 Dose: 100 mg Documented By: JUAN M Escitalopram Oxalate (Escitalopram Oxalate 10 Mg Tablet) 10 mg PO DAILY [facility] Last Admin: 10/03/23 07:54 Dose: 10 mg Documented By: RITCHIE Ferrous Sulfate (Ferrous Sulfate 324 Mg Tablet.) 324 mg PO BIDWM [facility] Last Admin: 10/03/23 15:35 Dose: 324 mg Documented By: RITCHIE Gabapentin (Gabapentin 100 Mg Capsule) 100 mg PO BEDTIME [facility] Last Admin: 10/02/23 23:40 Dose: 100 mg Documented By: JAN Guaifenesin/Dextromethorphan (Guaifenesin Dm 200/20/10 Ml 10 Ml Syrup) 10 ml PO TID [facility] Last Admin: 10/03/23 15:36 Dose: Not Given Documented By: RITCHIE Non-Admin Reason: Patient Refused Lidocaine (Lidocaine 4 % Patch Adh..Patch) 1 patch TRANSDERMA DAILY [facility]; Protocol Last Admin: 10/03/23 07:55 Dose: 1 patch Documented By: RITCHIE Loperamide HCl (Loperamide Hcl 2 Mg Capsule) 2 mg PO QID PRN PRN Reason: Diarrhea Mesalamine (Mesalamine 400 Mg Cap.Drtab.) 1,600 mg PO BID [facility] Last Admin: 10/03/23 07:53 Dose: 1,600 mg Documented By: RITCHIE Multivitamins/Vitamin C (Multivitamin Tablet) 1 tab PO DAILY [facility] Last Admin: 10/03/23 07:54 Dose: 1 tab Documented By: RITCHIE Nystatin (Nystatin Powder 15 Gm Bottle) 1 appl TOPICAL BID PRN; Protocol PRN Reason: Rash Omeprazole (Omeprazole 20 Mg Capsule.Dr) 20 mg PO DAILY@0630 [facility] Last Admin: 10/03/23 05:58 Dose: 20 mg Documented By: JAN Oxycodone HCl (Oxycodone Hcl Immed Release 5 Mg Tablet) 5 mg PO Q6H PRN PRN Reason: Pain, Moderate(Pain Scale 4-6) Last Admin: 10/03/23 07:52 Dose: 5 mg Documented By: RITCHIE Polyethylene Glycol (Polyethylene Glycol 3350 17 Gm Powd.Pack) 17 gm PO DAILY PRN PRN Reason: Constipation Simethicone (Simethicone 80 Mg Tab.Chew) 120 mg PO TID PRN PRN Reason: bloating Sodium Chloride (0.9 % Sodium Chloride Flush 3 Ml Syringe) 3 ml IVFLUSH QSHIFT [facility] Last Admin: 10/03/23 15:36 Dose: 3 ml Documented By: RITCHIE Torsemide (Torsemide 20 Mg Tablet) 10 mg PO MOWEFR@0900 [facility]; Protocol Last Admin: 10/03/23 07:54 Dose: 10 mg Documented By: RITCHIE Vitamin D (Cholecalciferol (Vitamin D3) 25 Mcg Tablet) 25 mcg PO DAILY [facility] Last Admin: 10/03/23 07:54 Dose: 25 mcg Documented By: RITCHIE Labs 10/01/23 08:38 09/30/23 06:39 Assessment and Plan (1) Sphenoid mass: Status: Acute (2) Dizziness: Status: Acute Plan 78-year-old female with pertinent history of dementia, unspecified, gastroesophageal reflux disease, essential hypertension, mixed hyperlipidemia, cardiomyopathy, ?seizure disorder who was sent to the emergency department for evaluation of slurred speech and confusion and found to have right thigh hematoma, likely from an unwintessed fall and found to have extra-axial lesion along sphenoid bone causing slight regional mass effect. 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 Slurred speech, confusion all sxs resolved ct head showed extra-axial lesion along sphenoid bone causing mass effect--no stroke, doesn't want further testing, tolerating diet, treatment focus towards palliative care as per patient and healthcare proxy wishes. No recurrent episodes of confusion Acute on chronic normocytic anemia likely due to acute blood loss related right thigh hematoma Hematocrit improved to 21.6 from 20.4 tolerating iron supplements, has declined blood transfusion, will hold off on checking further CBC. Right thigh hematoma, likely from unwitnessed fall, avoid anticoagulant,PT recommendation is STR , Continue scheduled Tylenol, lidocaine patch and as needed oxycodone , good pain control. COVID-19 infection no fevers, no hypoxia, continue tessalon pearle. Alzheimer's dementia/mood disorder no behavioral issues, continue Lexapro Cardiomyopathy continue aspirin, Coreg, statins and torsemide. Seizure disorder, not on meds. Gastroesophageal reflux disease continue PPI denies reflux symptoms Essential hypertension on Coreg 25 mg b.i.d. soft blood pressures will follow. Mixed hyperlipidemia continue Lipitor. DVT prophylaxis compression boots. Code status DNR DNI Disposition waiting for for safe disposition to short-term rehab, patient is a resident of [facility].CM looking for bed. Quality Stroke Does the patient have a stroke diagnosis?: No VTE Prior VTE?: No VTE Risk Level:: Medical - moderate - high VTE Device Contraindication: Treatment Not Indicated VTE Drug Contraindication: Treatment Not Indicated
[2023-10-03 16:00] VITALS: BP 123/58; PULSE 69; RESP 16; TEMP 36.6; O2SAT 98
[2023-10-03 20:00] VITALS: BP 120/56; PULSE 76; RESP 20; TEMP 36.3; O2SAT 96
[2023-10-03] MEDS: guaiFENesin DM 200/20/10 ML 10 ML SYRUP PO (23:14)
[2023-10-03] MEDS: Azelastine HCl Nasal 137 MCG/Spray 30 ML 2 SPRAY NOSTRIL-B (23:14)
[2023-10-03] MEDS: Gabapentin 100 MG CAPSULE PO (23:14)
[2023-10-04] VITALS: BP 134/63; PULSE 80; RESP 18; TEMP 37.1; O2SAT 97
[2023-10-04] MEDS: oxyCODONE HCl Immed Release 5 MG TABLET PO ×2 (00:47→09:50)
[2023-10-04 03:09] VITALS: BP 138/62; PULSE 79; RESP 18; TEMP 36; O2SAT 96
[2023-10-04] MEDS: Acetaminophen 325 MG TABLET 650 MG PO ×2 (05:29→09:50)
[2023-10-04] MEDS: Omeprazole 20 MG CAPSULE.DR PO (05:29)
[2023-10-04] MEDS: Benzonatate 100 MG CAPSULE PO (05:29)
[2023-10-04 08:00] VITALS: BP 126/78; PULSE 61; RESP 20; TEMP 36.3; O2SAT 96
[2023-10-04] MEDS: Lidocaine 4 % Patch ADH..PATCH 1 PATCH TRANSDERMA (09:49)
[2023-10-04] MEDS: Multivitamin TABLET 1 TAB PO (09:50)
[2023-10-04] MEDS: Cholecalciferol (Vitamin D3) 25 MCG TABLET PO (09:50)
[2023-10-04] MEDS: Escitalopram Oxalate 10 MG TABLET PO (09:50)
[2023-10-04] MEDS: Ferrous Sulfate 324 MG TABLET.DR PO (09:50)
[2023-10-04] MEDS: Mesalamine 400 MG CAP.DRTAB. 1600 MG PO (09:50)
[2023-10-04] MEDS: Ascorbic Acid 250 MG TABLET PO (09:50)
[2023-10-04] MEDS: guaiFENesin DM 200/20/10 ML 10 ML SYRUP PO (09:50)
[2023-10-04] MEDS: Aspirin 81 MG TAB.CHEW PO (09:50)
[2023-10-04] MEDS: Atorvastatin Calcium 20 MG TABLET PO (09:50)
[2023-10-04] MEDS: 0.9 % Sodium Chloride Flush 3 ML SYRINGE IVFLUSH (09:51)
[2023-10-04] MEDS: carvediloL 25 MG TABLET PO (09:51)
[2023-10-04 11:22] VITALS: BP 112/56; PULSE 74; RESP 20; TEMP 36.8; O2SAT 94
--- NOTE | 2023-10-04 11:51 | MHC.CM.PN ---
[facility] had no record of this Patient being booked for 12 noon today. Patient will dc to [facility] today at 2 PM, via [facility].
--- NOTE | 2023-10-04 12:09 | P.DS_ITS ---
DS: Providers Provider Date of Service: 10/04/23 Date of admission: 09/25/23 11:10 Primary care physician: Flaca Martinez NP Consults: 09/27/23 04:48 Consult to Wound Care Routine Reason for consultation: stage II R buttock DS: Diagnosis Discharge Diagnosis (1) Sphenoid mass: Status: Acute (2) Dizziness: Status: Acute DS: Summary Hospital Course Hospital Course: History of presenting illness: Date of Service: 09/25/23 Chief Complaint: Altered mentation This is a 78-year-old female with pertinent history of dementia, unspecified, gastroesophageal reflux disease, essential hypertension, mixed hyperlipidemia, cardiomyopathy, ?seizure disorder who was sent to the emergency department for evaluation of slurred speech and confusion. Last known normal time unclear. Patient states she fell and had swelling to the right thigh. She is complaining of right-sided thigh pain. History is limited as patient is a poor historian and no paperwork from [facility]. In the emergency department, imaging with enhancing hyperdense extra-axial lesion of the spinal bone causing regional mass effect. Also patient was found to have swollen and tender right thigh with likely underlying extravasation of blood. Patient's healthcare proxy ie niece was contacted and case was discussed. Patient stated that she does not want any intervention this time and would like to be on comfort measures only. Patient was initiated on IV morphine drip and admitted to hospital medicine team. Hospital course: 78-year-old female with pertinent history of dementia, unspecified, gastroesophageal reflux disease, essential hypertension, mixed hyperlipidemia, cardiomyopathy, ?seizure disorder who was sent to the emergency department for evaluation of slurred speech and confusion and found to have right thigh hematoma, likely from an unwintessed fall and found to have extra-axial lesion along sphenoid bone causing slight regional mass effect. She has declined further testing and initially was made [employer]OU[employer] with IV morphine drip but following further discuss with patient and HCP, palliative care deemed more appropriated, she is taking her usual meds, enjoying all her meals Still doesn't want further testing and therefore morphine drip discontinued and place on PRN morphine which is keeping her comfortable. Acute toxic metabolic encephalopathy, resolved was likely due to COVID infection, Slurred speech, confusion all sxs resolved,ct head showed extra-axial lesion along sphenoid bone causing mass effect--no stroke, patient and health care proxy doesn't want further testing, tolerating diet, treatment focus towards palliative care as per patient and healthcare proxy wishes.No recurrent episodes of confusion noted. Acute on chronic normocytic anemia likely due to acute blood loss related right thigh hematoma,Hematocrit improved to 21.6 from 20.4 tolerating iron supplements, patient declined blood transfusion, healthcare proxies aware. Right thigh hematoma, likely from unwitnessed fall, avoid anticoagulant,PT recommendation is STR ,Continue scheduled Tylenol, lidocaine patch and as needed oxycodone , good pain control. COVID-19 infection diagnosed on 09/24, no fevers, no hypoxia, continue tessalon pearle prn. Alzheimer's dementia/mood disorder no behavioral issues, continue Lexapro. Cardiomyopathy continue aspirin, Coreg, statins and torsemide. Seizure disorder, not on meds. Gastroesophageal reflux disease continue PPI denies reflux symptoms Essential hypertension on Coreg 25 mg b.i.d., stable blood pressures. Mixed hyperlipidemia continue Lipitor. Time Attestation Discharge coordination time: Greater than 30 minutes Quality: Safe Use of Opioids Does Pt have an Active Cancer Diagnosis on the Problem List?: No Quality: Stroke Does the patient have a stroke diagnosis?: No Physical Exam Vital Signs: Vital Signs: Last Vital Signs Temp 98.2 F 10/04/23 11:22 Pulse 74 10/04/23 11:22 Resp 20 10/04/23 11:22 BP 112/56 L 10/04/23 11:22 Pulse Ox 94 10/04/23 11:22 O2 Del Method Room Air 10/04/23 11:22 O2 Flow Rate 2 10/02/23 15:08 BMI result Body Mass Index 31.2 Const: Other: General sitting in bed in no distress, awake alert, oriented to self and place Neck no JVD CVS Regular rate and rhythm, S1-S2 heard Resp : Regular breath sounds bilaterally, no wheezing or crackles appreciated Abdomen soft, non tender, no guarding, no rigidity Skin: pallor Neuro awake, alert and oriented to self, and place , face symmetrical, speech clear moving all 4 extremities Extremity: Right thigh swelling and bruising improving , left knee normal examination Psych appropriate affect Discharge Plan Discharge Anticipated Discharge Date/Time: 10/04/23 11:49 Patient Disposition: [facility] Discharge Diagnosis: Acute on chronic normocytic anemia Acute toxic metabolic encephalopathy Referrals: Martinez,Flaca F, [employer]IC [Primary Care Provider] - 1 Week Discharge Medications: New ascorbic acid (vitamin C) 250 mg Tablet 250 mg PO BIDWM Qty: 60 0RF ferrous sulfate 324 mg (65 mg iron) Tablet,Delayed Release (Dr/Ec) 324 mg PO BIDWM Qty: 60 0RF polyethylene glycol 3350 [Miralax] 17 gram powder in packet 17 g PO DAILY Qty: 30 0RF benzonatate 100 mg Capsule 100 mg PO TID PRN (Reason: Cough) Qty: 30 0RF oxycodone 5 mg Tablet 5 mg PO Q6H PRN (Reason: Pain, Moderate(Pain Scale 4-6)) Qty: 14 0RF Rx Instructions: Partial Fill upon patient request. Continued carvedilol 25 mg tablet 25 mg PO BID atorvastatin 20 mg tablet 20 mg PO DAILY cyanocobalamin (vitamin B-12) 1,000 mcg tablet 1,000 mcg PO MOWEFR@0900 torsemide 10 mg tablet 10 mg PO MOWEFR@0900 citalopram 20 mg tablet 20 mg PO DAILY omeprazole 20 mg capsule,delayed release(DR/EC) 20 mg PO DAILY@0630 aspirin 81 mg tablet,chewable 1 tab PO DAILY gabapentin 100 mg capsule 100 mg PO BEDTIME cholecalciferol (vitamin D3) 25 mcg (1,000 unit) tablet 25 mcg PO DAILY mesalamine 800 mg tablet,delayed release (DR/EC) 1,600 mg PO BID PreserVision AREDS-2 250-90-40-1 mg capsule 1 cap PO BID azelastine 137 mcg (0.1 %) aerosol,spray 2 spray intranasal BID acetaminophen 325 mg tablet 650 mg PO DAILY PRN (Reason: Pain) Rx Instructions: in between scheduled tylenol lidocaine 4 % Adhesive Patch,Medicated 1 patch TOPICAL DAILY PRN (Reason: Pain) Rx Instructions: 12 hours on, 12 hours off loperamide 2 mg Capsule 2 mg PO QID PRN (Reason: Diarrhea) Rx Instructions: max 16mg/day polyethylene glycol 3350 [Miralax] 17 gram Powder In Packet 17 g PO DAILY PRN (Reason: Constipation) Debrox 6.5 % Drops 5 drp OTIC (EARS) BID PRN (Reason: Ear Wax) Rx Instructions: INTO AFFECTED EAR ONLY simethicone 125 mg Tablet,Chewable 125 mg PO TID PRN (Reason: bloating) Rx Instructions: MRX1 bisacodyl 5 mg Tablet,Delayed Release (Dr/Ec) 5 mg PO DAILY PRN (Reason: Constipation) nystatin 100,000 unit/gram Powder 1 appl TOPICAL BID PRN (Reason: Rash) chlorhexidine gluconate 0.12 % Mouthwash 15 ml MUCOUS MEMBRANE TID Rx Instructions: Place in mouth after meals, swish and spit for 30 secs acetaminophen 325 mg tablet 650 mg PO BID Discharge Orders: Discharge Order (Routine); Ordered 10/04/23 Ordered By: Carolee Gayle Diet: Advance to usual diet Activity on Discharge: As tolerated Stand Alone Forms: Patient Portal Discharge page Care Plan Goals: encephalopathy resolved anemia pt. declined transfusion cont.iron supplements Lidocaine patch to left knee Health Concerns: take all meds as above Plan of Treatment: Outpatient follow-up with primary care physician. Assessment: as above
--- NOTE | 2023-10-04 13:07 | PC.NURSE ---
Patient is to be discharged today to [facility]. Patient was told that she will be leaving today and that we needed to get her cleaned up and ready to go before discharge. Patient is refusing to let us wash her up, will not let us change her purewick or see if she is wet. If we touch her she screams and says that we are hurting her. Patient was educated on the importance of getting washed up and the need to be dry and she stated that she would Rather be wet then let us touch her will communicate with rehab on the situation and her refusal
--- NOTE | 2023-10-04 14:49 | PC.NURSE ---
This RN tried to call receiving facility for patient. Called x 3 with no answer. Called [facility] to try and get transferred over to correct building but was again unable to get ahold of facility. Report was given to EMS/transport.
== END 2023-10-04 14:51 | disposition skilled nursing facility (03) | DRG 177 ==
LOC: HO.ED 09-25 00:55 → HO.EDOVER 09-25 01:23 → HO.IMC 09-25 18:44
PROVIDERS: Internal Medicine; Admitting Provider Student in an Organized Health Care Education/Training Program; Emergency Provider Emergency Medicine; PCP Nurse Practitioner Gerontology; Visit Provider Hospitalist
DX: U07.1 COVID-19 (principal); G92.9 Unspecified toxic encephalopathy; D62 Acute posthemorrhagic anemia; I42.9 Cardiomyopathy, unspecified; J34.89 Other specified disorders of nose and nasal sinuses; Z66 Do not resuscitate; G40.909 Epilepsy, unspecified, not intractable, without status epilepticus; I10 Essential (primary) hypertension; K21.9 Gastro-esophageal reflux disease without esophagitis; E78.2 Mixed hyperlipidemia; S70.11XA Contusion of right thigh, initial encounter; W19.XXXA Unspecified fall, initial encounter; G30.9 Alzheimer's disease, unspecified; F02.80 Dementia in other diseases classified elsewhere, unspecified severity, without behavioral disturbance, psychotic disturbance, mood disturbance, and anxiety; Z79.82 Long term (current) use of aspirin; Z79.899 Other long term (current) drug therapy
CPT/HCPCS: 0241U; 36415; 70450; 70496; 70498; 71045; 72125; 73502; 73610; 80048; 80076; 82140; 82550; 82803; 82947; 83605; 83690; 83735; 83880; 84484; 85014; 85018; 85025; 85027; 85610; 86850; 86900; 86901; 87040; 87635; 93005; 97162; 99285; J0696; J2270; J2405; J3010; Q9967

== ENCOUNTER → 2023-09-24 21:24 | Outpatient (BNV) | payer OTHER, SELFPAY | PROVIDERS: Admitting Provider Student in an Organized Health Care Education/Training Program; Emergency Provider Emergency Medicine; Visit Provider Internal Medicine Cardiovascular Disease | DX: I42.9 Cardiomyopathy, unspecified (principal) | CPT/HCPCS: 93010 ==

== ENCOUNTER → 2023-09-25 01:16 | Outpatient (BNV) | payer OTHER, SELFPAY | PROVIDERS: Admitting Provider Student in an Organized Health Care Education/Training Program; Emergency Provider Emergency Medicine; Visit Provider Student in an Organized Health Care Education/Training Program | DX: J34.89 Other specified disorders of nose and nasal sinuses (principal); R42 Dizziness and giddiness | CPT/HCPCS: 99222; 99232; 99233; 99239 ==